=== PATIENT | female | born 1975 | race Caucasian/White ===

== ENCOUNTER 2020-09-16 09:07 | Outpatient (REF) | payer OTHER, SELFPAY ==
--- NOTE | 2020-09-16 09:48 | MR_ITS ---
EXAMINATION: MR BREAST WITHOUT AND WITH CONTRAST, BILATERAL CLINICAL INFORMATION: High-risk screening. The estimated lifetime risk of developing breast cancer is 28%. Mother with history of breast cancer diagnosed age 46. Patient questionnaire indicates previous right breast biopsy. COMPARISON: Portions of a previous study 12/14/2019. Mammography (nondiagnostic monitor review): 04/20/2019. TECHNIQUE: A 1.5 T system and a dedicated breast coil. T1-weighted sequences without fat-saturation were obtained prior to the administration of contrast. Fat-saturated T1 and T2-weighted sequences were also acquired. The patient received 10 mL of IV gadolinium-based contrast, Gadavist. Multiple sequential dynamic T1-weighted sequences were obtained through both breasts with fat-saturation. Subtracted images were reviewed. CAD postprocessing with 3-D reconstructions, maximum intensity projections and kinetic analysis was performed by the interpreting radiologist at an independent workstation and reviewed as a portion of this exam. FINDINGS: Amount of Remaining Fibroglandular Signal: There are scattered areas of fibroglandular tissue (ACR BI-RADS breast composition category B).* Background Parenchymal Enhancement: Moderate Symmetry of Background Enhancement: Symmetric RIGHT BREAST: The 0.4 cm rim-enhancing observation in the 9 o'clock position, 4 cm from the right nipple on the previous study is similar or less conspicuous. There is a small 0.4 cm enhancing focus in the 6 o'clock position, 3 cm from the right nipple (series 100, image 97). This was likely present on 12/14/2019. Masses: There are no other suspicious enhancing masses. Non-mass Enhancement: There is no suspicious non-mass enhancement. Focus: There are a few other nonspecific enhancing foci. Non-enhancing Findings: Associated findings: There are no suspicious associated findings. Kinetic Curve Assessment: Initial Phase: There are no suspicious areas of color signal. Delayed Phase: There are no areas of washout kinetics. There is some color signal associated with the small observation in the 6:00 position. This demonstrates mixed kinetics but no washout. LEFT BREAST: There is a small area of heterogeneous enhancement just above the left nipple (series 101, image 66). Based upon the parasagittal postcontrast images, this is unchanged. Masses: There are no other suspicious enhancing masses. Non-mass Enhancement: There is no suspicious non-mass enhancement. Focus: There are no other suspicious enhancing foci. Non-enhancing Findings: Associated Findings: There are no suspicious associated findings. Kinetic Curve Assessment: Initial Phase: There are no areas of suspicious color signal. Delayed Phase: There are no areas of washout kinetics. There is persistent enhancement in the small observation in the left breast. No washout. The axillary lymph nodes are morphologically normal. No suspicious internal mammary lymph nodes are seen. No suspicious abnormality in the visualized portions of chest or abdomen. MR/MR breast BI wo/w con IMPRESSION: There are some small enhancing observations in each breast. There is no convincing suspicious enhancing mass. There are some small enhancing findings for which repeat MRI in one year is strongly recommended. The most recent available mammogram is 04/20/2019. Strongly recommend annual screening mammography. ASSESSMENT: Right Breast: ACR BI-RADS 2: Benign finding. Left Breast: ACR BI-RADS 2: Benign finding. RECOMMENDATIONS: Continue screening. The patient appears to be due for screening mammography. Recommend annual screening breast MRI.
== END 2020-09-16 09:08 | disposition home or self-care (01) ==
LOC: HO.MRI 09:07
PROVIDERS: PCP Internal Medicine; Visit Provider Surgery
DX: Z91.89 Other specified personal risk factors, not elsewhere classified (principal); Z80.3 Family history of malignant neoplasm of breast
CPT/HCPCS: 77049; A9585

== ENCOUNTER → 2020-11-11 11:47 | Outpatient (BNVA) | payer OTHER, SELFPAY | PROVIDERS: PCP Internal Medicine; Referring Provider Internal Medicine; Visit Provider Surgery | DX: Z76.89 Persons encountering health services in other specified circumstances (principal) ==

== ENCOUNTER 2022-05-11 21:43 | Emergency (ER) | payer OTHER, SELFPAY ==
--- NOTE | ~2022-05-11 | XR_ITS ---
EXAMINATION: XR SHOULDER, RIGHT CLINICAL INFORMATION: Status post fall COMPARISON: None TECHNIQUE: AP external rotation, Grashey, scapular Y, and axillary views of the right shoulder. FINDINGS: The bones and soft tissues are normal. No fracture. Glenohumeral and acromioclavicular alignment is anatomic with normal joint space. No abnormal soft tissue calcifications. XR/XR shoulder RT min 2V IMPRESSION: Normal right shoulder.
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
[2022-05-11 22:22] VITALS: BP 132/64; PULSE 89; RESP 18; TEMP 35.9; O2SAT 98; BMI 31.0
[2022-05-11] MEDS: traMADoL HCL 50 MG TABLET PO (22:47)
[2022-05-11] MEDS: Ibuprofen 600 MG TABLET PO (22:48)
[2022-05-11] MEDS: Cyclobenzaprine HCl 10 MG TABLET PO (22:54)
== END 2022-05-11 23:05 | disposition home or self-care (01) ==
PROVIDERS: Emergency Provider Internal Medicine; PCP Internal Medicine
DX: S46.011A Strain of muscle(s) and tendon(s) of the rotator cuff of right shoulder, initial encounter (principal); S50.311A Abrasion of right elbow, initial encounter; S80.211A Abrasion, right knee, initial encounter; V18.0XXA Pedal cycle driver injured in noncollision transport accident in nontraffic accident, initial encounter; Y93.55 Activity, bike riding; Y92.410 Unspecified street and highway as the place of occurrence of the external cause; Y99.9 Unspecified external cause status
CPT/HCPCS: 73030; 99283; 99284

== ENCOUNTER 2022-05-22 17:30 | Emergency (ER) | payer OTHER, SELFPAY ==
[2022-05-22 17:39] VITALS: BP 170/80; PULSE 65; RESP 18; TEMP 36.6; O2SAT 100; BMI 31.0
[2022-05-22 18:10] LABS: Hematocrit 33.5 % (37.0-47.0); Hemoglobin 10.5 g/dl (12.0-16.0); Mean Corpuscular HGB Conc 31.3 g/dl (31.0-35.0); Mean Corpuscular Hemoglobin 27.3 pg (27.0-33.0); Mean Platelet Volume 9.5 fL (9.4-12.3); Platelet Count 262 X10*3/uL (160-400); Red Blood Count 3.85 X10*6/uL (4.20-5.50); Red Cell Distribution Width 14.5 % (11.0-16.0); White Blood Count 6.9 X10*3/uL (4.8-10.8)
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
[2022-05-22 18:26] LABS: Anion Gap 12 (12-20); Blood Urea Nitrogen 11 mg/dL (9-16); Calcium 9.5 mg/dL (8.4-10.2); Carbon Dioxide 24 mmol/L (22-29); Chloride 108 mmol/L (96-108); Creatinine Clr Calc Pharmacy 93.8; Estimated Glomerular Filt Rate > 60; Glucose Random 153 mg/dL (60-115); Potassium 4.3 mmol/L (3.3-5.1); Sodium 140 mmol/L (135-145)
[2022-05-22] MEDS: predniSONE 20 MG TABLET 60 MG PO (18:54)
[2022-05-22 18:55] VITALS: BP 123/65; PULSE 58; RESP 14; TEMP 36.9; O2SAT 100
[2022-05-22] MEDS: Famotidine 20 MG TABLET PO (18:55)
[2022-05-22] MEDS: Ondansetron ODT 4 MG TAB.RAPDIS TRANSLINGU (18:55)
== END 2022-05-22 19:26 | disposition home or self-care (01) ==
PROVIDERS: Emergency Provider Emergency Medicine; PCP Internal Medicine
DX: L50.9 Urticaria, unspecified (principal); T40.425A Adverse effect of tramadol, initial encounter; Y92.9 Unspecified place or not applicable
CPT/HCPCS: 36415; 80048; 85027; 99282; 99283

== ENCOUNTER 2022-11-18 21:35 | Inpatient (IN) | payer OTHER, SELFPAY ==
--- NOTE | ~2022-11-18 | CT_ITS ---
EXAMINATION: CT ABDOMEN AND PELVIS WITH CONTRAST CLINICAL INFORMATION: Upper abdominal pain. Pancreatitis/SBO COMPARISON: None TECHNIQUE: Multidetector volumetric images were obtained from the superior aspect of the liver through the pubic symphysis following administration 85 mL of Omnipaque 350 intravenous contrast. Sagittal and coronal reformatted images were obtained on the technologist's workstation. Oral contrast: No This CT examination was performed using dose optimization techniques as appropriate, variously including the following: *Automated exposure control *Adjustment of mA and/or kV according to patient size (this includes techniques or standardized protocols for targeted exams where dose is matched to indication/reason for exam; i.e. extremities or head) *Use of iterative reconstruction technique DLP: 841 mGy-cm FINDINGS: LUNG BASES: The visualized lung bases are unremarkable. Pericardial effusion. LIVER, GALLBLADDER, AND BILIARY TREE: The liver is normal in size, shape, and attenuation. No focal hepatic lesion or biliary ductal dilatation is present. The gallbladder is unremarkable with no evidence of radiopaque gallstones, gallbladder wall thickening, or obvious pericholecystic inflammatory changes. PANCREAS: Unremarkable. SPLEEN: Unremarkable. ADRENAL GLANDS: Unremarkable. KIDNEYS AND URETERS: The kidneys are normal in size, shape, and attenuation. No hydronephrosis, hydroureter, or calculi seen. No perinephric stranding. BLADDER: Unremarkable. GASTROINTESTINAL TRACT: Dilated loops of distal small bowel extending into the lower pelvis are noted with a probable transition point seen at a enteric anastomosis (3:70). Large bowel is decompressed. There is fluid in the pelvis and interloop fluid is noted as well (3:58). Additional anastomoses appear patent. ABDOMINAL WALL: No significant hernia is appreciated. LYMPH NODES: Normal. VASCULAR: Unremarkable. PELVIC VISCERA: Unremarkable. OSSEOUS STRUCTURES: Unremarkable. CT/CT abdomen pelvis w IV con IMPRESSION: Dilated loops of distal small bowel extending into the lower pelvis with a probable transition point seen at a enteric anastomosis. There is fluid in the pelvis and interloop fluid is noted as well. These findings are concerning for small bowel obstruction.
--- NOTE | ~2022-11-18 | XR_ITS ---
EXAMINATION: XR CHEST CLINICAL INFORMATION: NG tube placement COMPARISON: None TECHNIQUE: Frontal view of the chest was obtained. FINDINGS: Enteric tube extends below the hemidiaphragm with the tip out of field of view. Lungs are clear, no effusion or pneumothorax. Cardiomediastinal silhouette is within normal limits. XR/XR chest 1V IMPRESSION: Enteric tube extends below the hemidiaphragm with the tip out of field of view.
--- NOTE | ~2022-11-18 | XR_ITS ---
EXAMINATION: XR ABDOMEN KUB CLINICAL INDICATION: Recent small bowel obstruction. Follow-up small bowel series. COMPARISON: Small bowel series ON 923, CT abdomen and pelvis 11/18/2022. TECHNIQUE: AP x2 views of the abdomen. FINDINGS: Most of the oral contrast has moved into the colon. There is some scant contrast distal small bowel which is of normal caliber. There is no gaseous dilatation of bowel. No obstruction. XR/XR KUB IMPRESSION: 1. Most of the oral contrast is moved into the colon. 2. No gaseous dilatation of bowel. No obstruction.
--- NOTE | ~2022-11-18 | FL_ITS ---
EXAMINATION: FL SMALL BOWEL SERIES CLINICAL INFORMATION: SBO. COMPARISON: CT abdomen pelvis 11/18/2022 TECHNIQUE: Following a floriculturist image of the abdomen, contrast was administered orally, and interval abdominal radiographs were performed to assess for contrast progression through the small bowel. Following contrast transit through the small bowel and into the colon, the patient was placed on the fluoroscopy table, and multiple spot images were obtained. FINDINGS: Air Sealing Technician image of the abdomen demonstrates minimal stool in the right colon otherwise normal bowel gas pattern. There is normal transit time of contrast material through the small bowel, with contrast present in the colon less than 1 hour 40 minutes. Small bowel loops are of normal caliber throughout the abdomen and pelvis. The jejunal and ileal fold patterns are normal, without evidence of abnormal thickening. No fixed regions of luminal narrowing are seen to suggest stricturing. The terminal ileum demonstrates a normal appearance. Patient is status post partial colectomy with ileocolic anastomosis in the right upper/mid quadrant. FLUOROSCOPY TIME: 1.5 minutes DOSE AREA PRODUCT: 11.557 uGy-m2 (microgray-meter squared) FL/FL small bowel follow through IMPRESSION: Normal small bowel series. Patient has known colectomy with ileocolic anastomosis in the right mid quadrant. Recommend a follow-up KUB at 8:00 AM tomorrow.
[2022-11-18 21:41] VITALS: BP 159/91; PULSE 73; RESP 18; TEMP 36.6; O2SAT 99; BMI 32.5
[2022-11-18 21:51] VITALS: BP 145/93; PULSE 90; RESP 20; TEMP 36.6; O2SAT 99
--- NOTE | 2022-11-18 21:53 | ECG_ITS ---
Test Reason : EPIGASTRIC PAIN Blood Pressure : / mmHG Vent. Rate : 059 BPM Atrial Rate : 059 BPM P-R Int : 170 ms QRS Dur : 090 ms QT Int : 432 ms P-R-T Axes : 050 060 058 degrees QTc Int : 427 ms Sinus bradycardia Otherwise normal ECG When compared with ECG of 04-APR-2013 10:41, No significant change was found Referred By: Chalo Shirley Electronically Signed By:VIVIANA RAYMOND
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
[2022-11-18 22:16] VITALS: RESP 14
[2022-11-18] MEDS: Morphine Sulfate 4 MG/ML CARTRIDGE IVPUSH (22:16)
[2022-11-18] MEDS: ondansetron HCL 4 MG/2 ML VIAL IVPUSH (22:16)
[2022-11-18 22:17] LABS: MANUAL DIFF FLAG NO
[2022-11-18] MEDS: 0.9 % Sodium Chloride 1,000 ML 999 ML IV (22:17)
[2022-11-18 22:18] LABS: Basophils Percent Auto 0.3 % (0-2); Eosinophils Percent Auto 0.2 % (0-4); Hematocrit 38.4 % (37.0-47.0); Hemoglobin 12.7 g/dl (12.0-16.0); Imm Gran Abs Auto 0.03 X10*3/uL (0.00-0.03); Imm Gran Pct Auto 0.3 % (0.0-0.4); Lymphocytes Absolute Auto 1.5 X10*3/uL (1.2-4.9); Lymphocytes Percent Auto 13.1 % (20-40); Mean Corpuscular HGB Conc 33.1 g/dl (31.0-35.0); Mean Corpuscular Hemoglobin 28.1 pg (27.0-33.0); Mean Platelet Volume 9.3 fL (9.4-12.3); Monocytes Absolute Auto 0.7 X10*3/uL (0.1-1.2); Monocytes Percent Auto 5.6 % (2-11); Neutrophils Absolute Auto 9.3 x10*3/uL (2.0-8.3); Neutrophils Percent Auto 80.5 % (45-73); Platelet Count 329 X10*3/uL (160-400); Red Blood Count 4.52 X10*6/uL (4.20-5.50); Red Cell Distribution Width 12.7 % (11.0-16.0); White Blood Count 11.6 X10*3/uL (4.8-10.8)
[2022-11-18 22:32] LABS: Lactic Acid 1.7 mmol/L (0.5-2.0)
[2022-11-18 22:37] LABS: Alanine Aminotransferase 39 U/L (0-31); Albumin Level 4.6 g/dL (3.5-5.0); Alkaline Phosphatase 104 U/L (39-117); Anion Gap 17 (12-20); Aspartate Amino Transferase 31 U/L (5-31); Bilirubin Total 0.6 mg/dL (0.0-1.0); Blood Urea Nitrogen 9 mg/dL (9-16); Calcium 10.4 mg/dL (8.4-10.2); Carbon Dioxide 18 mmol/L (22-29); Chloride 109 mmol/L (96-108); Creatinine Clr Calc Pharmacy 105.4; Estimated Glomerular Filt Rate > 60; Glucose Random 143 mg/dL (60-115); Lipase 9 U/L (8-78); Potassium 3.9 mmol/L (3.3-5.1); Sodium 140 mmol/L (135-145); Total Protein 7.7 g/dL (6.5-8.0)
[2022-11-18] MEDS: iohexoL 350 MG/ML 100 ML INFUS..BTL IV (22:49)
[2022-11-18] MEDS: Lidocaine HCl 4 % MPF w/MADgic 5 ML AMPUL 1 APPL TOPICAL (23:29)
[2022-11-19 00:03] LABS: COVID-19 Test Negative (Negative); IDNOW Serial# 16C4AD1C
[2022-11-19] MEDS: Dextrose 5 % and Lactated Ring 1,000 ML 125 ML IVCONT ×3 (00:03→18:36)
[2022-11-19] MEDS: Acetaminophen 1,000 MG/100 ML PIGGYBACK 400 MG IV ×4 (00:03→17:54)
[2022-11-19 00:54] VITALS: RESP 16
[2022-11-19] MEDS: Morphine Sulfate 4 MG/ML CARTRIDGE IVPUSH ×4 (00:54→22:44)
[2022-11-19] MEDS: 0.9 % Sodium Chloride Flush 3 ML SYRINGE IVFLUSH (00:56)
[2022-11-19] MEDS: Enoxaparin Sodium 40 MG/0.4 ML SYRINGE SUBCUT ×2 (00:56→22:43)
[2022-11-19 02:53] VITALS: BP 122/66; PULSE 74; RESP 16; O2SAT 99
[2022-11-19 06:49] LABS: MANUAL DIFF FLAG NO
[2022-11-19 06:55] LABS: Basophils Percent Auto 0.4 % (0-2); Eosinophils Percent Auto 0.3 % (0-4); Hematocrit 32.9 % (37.0-47.0); Hemoglobin 10.7 g/dl (12.0-16.0); Imm Gran Abs Auto 0.03 X10*3/uL (0.00-0.03); Imm Gran Pct Auto 0.3 % (0.0-0.4); Lymphocytes Absolute Auto 1.9 X10*3/uL (1.2-4.9); Lymphocytes Percent Auto 19.1 % (20-40); Mean Corpuscular HGB Conc 32.5 g/dl (31.0-35.0); Mean Corpuscular Hemoglobin 28.5 pg (27.0-33.0); Mean Corpuscular Volume 87.5 fL (80.0-98.0); Mean Platelet Volume 9.9 fL (9.4-12.3); Monocytes Absolute Auto 0.8 X10*3/uL (0.1-1.2); Monocytes Percent Auto 8.1 % (2-11); Neutrophils Absolute Auto 7.1 x10*3/uL (2.0-8.3); Neutrophils Percent Auto 71.8 % (45-73); Platelet Count 272 X10*3/uL (160-400); Red Blood Count 3.76 X10*6/uL (4.20-5.50); Red Cell Distribution Width 12.9 % (11.0-16.0); White Blood Count 9.9 X10*3/uL (4.8-10.8)
[2022-11-19 07:39] LABS: Anion Gap 10 (12-20); Blood Urea Nitrogen 8 mg/dL (9-16); Carbon Dioxide 22 mmol/L (22-29); Chloride 113 mmol/L (96-108); Creatinine Clr Calc Pharmacy 102.9; Estimated Glomerular Filt Rate > 60; Glucose Random 110 mg/dL (60-115); Potassium 4.2 mmol/L (3.3-5.1); Sodium 141 mmol/L (135-145)
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
[2022-11-19 07:47] VITALS: BP 136/76; PULSE 65; RESP 15; TEMP 36.6; O2SAT 99
[2022-11-19 07:47] LABS: Calcium 9.2 mg/dL (8.4-10.2)
--- NOTE | 2022-11-19 08:05 | PHA.MEDREC ---
Pharmacy Consult ? Medication Reconciliation Pharmacy has completed the medication reconciliation.
--- NOTE | 2022-11-19 08:14 | PC.NURSE ---
Patient awake and alert. skin pwd, resp even and non labored. speaking in full, clear sentences. vss. patient c/o 05/23 pain to abdomen, throat, jaw, and nare. medicated w/ prn morphine as ordered. Patient seen by Dr. Gama who mentioned ordering a throat spray. NG tube patent and set to intermittent suction- 300cc of brown gastric contents noted in basin at this time.
--- NOTE | 2022-11-19 08:53 | P.CDIC_ITS ---
CDI Concurrent Query Documentation Clarification: PHYSICIAN'S DOCUMENTATION REQUEST Date of Query: 11/19/22 0854 Patient Name: Karuna Sosa Admit Date: 11/18/22 Dear Doctor, A review of the medical record indicates additional documentation may be needed. Please review below and update the documentation accordingly. Risk Factors/Clinical Indicators/Treatments Per MD progress note 11/19/22: CT findings consistent with small-bowel obstruction due to adhesions from prior surgery. Based on the above, could you clarify in the Progress Notes the appropriate diagnosis, if significant, that supports the above abnormalities and additional evaluation, monitoring, and/or treatment rendered: * SBO, partial * SBO, complete * Other (please specify) * Unable to determine Use of terms such as suspected, likely, concern for, or probable (associated with a specific diagnosis that is being evaluated, monitored, or treated as if it exists) are acceptable and can be coded in the inpatient setting, when documented at the time of discharge. Thank you, Caitie Romano RN Extension: [phone] Please use your independent medical judgment in providing your response. THIS QUERY IS PART OF THE PERMANENT MEDICAL RECORD Provider Response: Other Other Diagnosis: Partial small bowel obstruction
--- NOTE | 2022-11-19 09:09 | PC.NURSE ---
ivf hung per order float nurse
[2022-11-19] MEDS: Throat Spray, Medicated 177 ML BOTTLE 1 SPRAY MUCOUS MEM (09:42)
--- NOTE | 2022-11-19 11:26 | MHC.CM.PN ---
CM met with Patient and her at bedside. Patient lives in a house with her and she required no services nor DME RETAIL WIRELESS ASSOCIATE. Home/self care is the goal and CM has initiated and will follow for dc planning. Patient has received no Covid vax and her PCP is Dr. Shafer.
[2022-11-19 11:38] VITALS: BP 171/82; PULSE 59; RESP 20; TEMP 36.6; O2SAT 100
[2022-11-19 15:47] VITALS: BP 159/80; PULSE 66; RESP 18; TEMP 37.1; O2SAT 97
[2022-11-19 19:33] VITALS: BP 156/80; PULSE 65; RESP 18; TEMP 37.1; O2SAT 99
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
[2022-11-19] MEDS: Ketorolac Tromethamine 30 MG/ML VIAL IVPUSH (22:56)
[2022-11-20] MEDS: Morphine Sulfate 4 MG/ML CARTRIDGE IVPUSH ×2 (03:11→09:40)
[2022-11-20] MEDS: Dextrose 5 % and Lactated Ring 1,000 ML 125 ML IVCONT ×3 (03:13→23:13)
[2022-11-20 03:40] VITALS: BP 109/66; PULSE 61; RESP 14; TEMP 36.6; O2SAT 95
[2022-11-20 06:25] LABS: Hemoglobin 10.1 g/dl (12.0-16.0); Mean Corpuscular HGB Conc 31.6 g/dl (31.0-35.0); Mean Corpuscular Hemoglobin 28.3 pg (27.0-33.0); Mean Corpuscular Volume 89.6 fL (80.0-98.0); Mean Platelet Volume 9.3 fL (9.4-12.3); Platelet Count 228 X10*3/uL (160-400); Red Blood Count 3.57 X10*6/uL (4.20-5.50); Red Cell Distribution Width 12.9 % (11.0-16.0); White Blood Count 5.8 X10*3/uL (4.8-10.8)
[2022-11-20 06:32] LABS: Anion Gap 8 (12-20); Blood Urea Nitrogen 6 mg/dL (9-16); Calcium 8.9 mg/dL (8.4-10.2); Carbon Dioxide 26 mmol/L (22-29); Chloride 113 mmol/L (96-108); Creatinine Clr Calc Pharmacy 118.4; Estimated Glomerular Filt Rate > 60; Glucose Random 107 mg/dL (60-115); Sodium 143 mmol/L (135-145)
[2022-11-20 08:00] VITALS: BP 149/76; PULSE 77; RESP 18; TEMP 36.9; O2SAT 94
--- NOTE | 2022-11-20 09:55 | PM.PNGS ---
Subjective Subjective Date of Service: 11/20/22 Interval history: feels much better abdominal pain much improved says she passed flatus this AM Physical Exam Vital Signs: Vital Signs: Last Vital Signs Temp 98.5 F 11/20/22 08:00 Pulse 77 11/20/22 08:00 Resp 18 11/20/22 08:00 BP 149/76 H 11/20/22 08:00 Pulse Ox 94 11/20/22 08:00 O2 Del Method 11/20/22 08:00 BMI result Body Mass Index 32.5 Const: General: comfortable and no acute distress Resp: Effort & Inspection: normal respiratory effort Cardio: Rate: regular rate GI: Palpation (GI): Soft to palpation, not firm, nontender and no guarding Objective Data Active Medications Amlodipine Besylate (Amlodipine Besylate 5 Mg Tablet) 5 mg PO DAILY [facility]; Protocol Last Admin: 11/20/22 09:40 Dose: Not Given Documented By: MINNA Non-Admin Reason: Patient Refused Enoxaparin Sodium (Enoxaparin Sodium 40 Mg/0.4 Ml Syringe) 40 mg SUBCUT Q24H [facility] Last Admin: 11/19/22 22:43 Dose: 40 mg Documented By: JUANITO Dextrose/Lactated Ringer's (D5lr) 1,000 mls @ 125 mls/hr IVCONT .Q8H [facility] Last Admin: 11/20/22 09:39 Dose: Not Given Documented By: MINNA Non-Admin Reason: IV Running Ketorolac Tromethamine (Ketorolac Tromethamine 30 Mg/Ml Vial) 30 mg IVPUSH Q6H PRN PRN Reason: Pain, Moderate (Pain Scale 4-6 Last Admin: 11/19/22 22:56 Dose: 30 mg Documented By: JUANITO Levothyroxine Sodium (Levothyroxine Sodium 75 Mcg Tablet) 75 mcg PO DAILY@0600 [facility] Last Admin: 11/20/22 06:16 Dose: Not Given Documented By: JUANITO Non-Admin Reason: Patient Refused Morphine Sulfate (Morphine Sulfate 4 Mg/Ml Cartridge) 4 mg IVPUSH Q4H PRN; Protocol PRN Reason: Pain, Severe (Pain Scale 7-10) Last Admin: 11/20/22 09:40 Dose: 4 mg Documented By: HO.SOLISPE Multi-Ingred Medicated Throat [place] (Throat [place], Medicated 177 Ml Bottle) 1 spray MUCOUS MEM Q2H PRN PRN Reason: Sore Throat Last Admin: 11/19/22 09:42 Dose: 1 spray Documented By: ESSIE Ondansetron HCl (Ondansetron Hcl 4 Mg/2 Ml Vial) 4 mg IVPUSH QID PRN PRN Reason: Nausea Pharmacy Consult (Consult Rx Perform Med Rec) 1 each MISCELLANE ONCE PRN PRN Reason: Consult order Sodium Chloride (0.9 % Sodium Chloride Flush 3 Ml Syringe) 3 ml IVFLUSH QSHIFT [facility] Last Admin: 11/20/22 09:39 Dose: Not Given Documented By: MINNA Non-Admin Reason: IV Running Zolpidem Tartrate (Zolpidem Tartrate 5 Mg Tablet) 5 mg PO BEDTIME PRN PRN Reason: Insomnia Labs 11/20/22 05:57 11/20/22 05:57 Labs: Laboratory Results - last 24 hr 11/20/22 11/20/22 05:57 05:57 MCV 89.6 MCH 28.3 MCHC 31.6 RDW 12.9 Plt Count 228 MPV 9.3 L Absolute Nucleated RBC 0.000 Nucleated RBC % (auto) 0.0 Anion Gap 8 L Estim Creat Clear Calc 118.4 Estimated GFR > 60 Random Glucose 107 Calcium 8.9 Procedures Date of Service Date of Service: 11/20/22 Progress Note: A&P Assessment and plan (1) Small bowel obstruction: Status: Acute Assessment and Plan: improving abd soft and benign subjectively pt feels much improved will see how much NGT output is, possibly dc later encouraged ambulation labs ok Time Spent With Patient Time: Total time managing care of this patient today ____ minutes. Quality Stroke Does the patient have a stroke diagnosis?: No VTE Prior VTE?: No VTE Risk Level:: Surgical - moderate VTE Device Contraindication: N/A - Device Ordered VTE Drug Contraindication: N/A - Med Ordered
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
[2022-11-20 11:16] VITALS: BP 138/71; PULSE 71; RESP 18; TEMP 37.2; O2SAT 98
[2022-11-20] MEDS: Ketorolac Tromethamine 30 MG/ML VIAL IVPUSH ×2 (11:16→20:51)
[2022-11-20 15:31] VITALS: BP 144/71; PULSE 66; RESP 17; TEMP 36.4; O2SAT 100
[2022-11-20 19:11] VITALS: BP 156/73; PULSE 78; RESP 17; TEMP 36.9; O2SAT 98
[2022-11-20] MEDS: Enoxaparin Sodium 40 MG/0.4 ML SYRINGE SUBCUT (23:13)
[2022-11-21] MEDS: Ketorolac Tromethamine 30 MG/ML VIAL IVPUSH ×2 (05:46→12:17)
[2022-11-21 07:14] VITALS: BP 118/58; PULSE 68; RESP 17; TEMP 36.6; O2SAT 97
--- NOTE | 2022-11-21 09:57 | P.PNGS_ITS ---
Subjective Subjective Date of Service: 11/21/22 Interval history: says her abd feels better has passed flatus a few times c/o pain on throaat and nose from NGT as per nurse - NGT output was 1600 overnight - pt does take ice chips Physical Exam Vital Signs: Vital Signs: Last Vital Signs Temp 97.8 F 11/21/22 07:14 Pulse 68 11/21/22 07:14 Resp 17 11/21/22 07:14 BP 118/58 L 11/21/22 07:14 Pulse Ox 97 11/21/22 07:14 O2 Del Method 11/21/22 07:14 BMI result Body Mass Index 32.5 Const: Other: looks better General: comfortable and no acute distress Resp: Effort & Inspection: normal respiratory effort Cardio: Rate: regular rate GI: Inspection: No distended Palpation (GI): Soft to palpation, not firm, nontender and no guarding Objective Data Active Medications Amlodipine Besylate (Amlodipine Besylate 5 Mg Tablet) 5 mg PO DAILY [facility]; Protocol Last Admin: 11/20/22 09:40 Dose: Not Given Documented By: MINNA Non-Admin Reason: Patient Refused Enoxaparin Sodium (Enoxaparin Sodium 40 Mg/0.4 Ml Syringe) 40 mg SUBCUT Q24H [facility] Last Admin: 11/20/22 23:13 Dose: 40 mg Documented By: JUANITO Ketorolac Tromethamine (Ketorolac Tromethamine 30 Mg/Ml Vial) 30 mg IVPUSH Q6H PRN PRN Reason: Pain, Moderate, headache Last Admin: 11/21/22 05:46 Dose: 30 mg Documented By: JUANITO Levothyroxine Sodium (Levothyroxine Sodium 75 Mcg Tablet) 75 mcg PO DAILY@0600 [facility] Last Admin: 11/21/22 05:51 Dose: Not Given Documented By: JUANITO Non-Admin Reason: Patient Refused Morphine Sulfate (Morphine Sulfate 4 Mg/Ml Cartridge) 4 mg IVPUSH Q4H PRN; Protocol PRN Reason: Pain, Severe (Pain Scale 7-10) Last Admin: 11/20/22 09:40 Dose: 4 mg Documented By: MINNA Multi-Ingred Medicated Throat [place] (Throat [place], Medicated 177 Ml Bottle) 1 spray MUCOUS MEM Q2H PRN PRN Reason: Sore Throat Last Admin: 11/19/22 09:42 Dose: 1 spray Documented By: ESSIE Ondansetron HCl (Ondansetron Hcl 4 Mg/2 Ml Vial) 4 mg IVPUSH QID PRN PRN Reason: Nausea Pharmacy Consult (Consult Rx Perform Med Rec) 1 each MISCELLANE ONCE PRN PRN Reason: Consult order Sodium Chloride (0.9 % Sodium Chloride Flush 3 Ml Syringe) 3 ml IVFLUSH QSHIFT [facility] Last Admin: 11/21/22 07:42 Dose: Not Given Documented By: MINNA Non-Admin Reason: IV Running Zolpidem Tartrate (Zolpidem Tartrate 5 Mg Tablet) 5 mg PO BEDTIME PRN PRN Reason: Insomnia Labs 11/20/22 05:57 11/20/22 05:57 Procedures Date of Service Date of Service: 11/21/22 Progress Note: A&P Assessment and plan (1) Small bowel obstruction: Status: Acute Assessment and Plan: likely from postop adhesions passing flatus looks well abd soft, not distended, not tender as per nurse - high NGT output, although clear, likely from ice chips? clamp NGT, reevaluate later and likely dc exam benign seems much improved labs ok Time Spent With Patient Time: Total time managing care of this patient today ____ minutes. Quality Stroke Does the patient have a stroke diagnosis?: No VTE Prior VTE?: No VTE Risk Level:: Surgical - moderate VTE Device Contraindication: N/A - Device Ordered VTE Drug Contraindication: N/A - Med Ordered
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
--- NOTE | 2022-11-21 13:17 | PM.EVENT ---
Event Note Date of Service: 11/21/22 Event Note: continues to feel well denies abdl pain NGT clamped - checked now for residuals - no output abd remains soft, not tender, not distended pt appears well will dc NGT keep on sips of clears for now Time Spent With Patient Time: Total time managing care of this patient today ____ minutes.
[2022-11-21] MEDS: Lactated Ringers 1,000 ML 80 ML IVCONT (14:52)
[2022-11-21 16:00] VITALS: BP 143/79; PULSE 68; RESP 17; TEMP 36.6; O2SAT 100
--- NOTE | 2022-11-21 16:41 | PC.NURSE ---
at approx 1330, pt wished to not have IV fluids administered. RN and patient agreed to check in later.
[2022-11-21 19:11] VITALS: BP 148/72; PULSE 68; RESP 16; TEMP 37; O2SAT 99
--- NOTE | 2022-11-21 20:04 | PC.NURSE ---
Report given to Inez BRUNO on S3. Pt being transferred at this time.
[2022-11-21 20:13] VITALS: BP 158/82; PULSE 68; RESP 18; TEMP 36.8; O2SAT 100
[2022-11-21 21:03] VITALS: BP 143/70; PULSE 64
[2022-11-21] MEDS: Enoxaparin Sodium 40 MG/0.4 ML SYRINGE SUBCUT (23:38)
[2022-11-22] MEDS: Ketorolac Tromethamine 30 MG/ML VIAL IVPUSH (01:47)
[2022-11-22 03:28] VITALS: BP 120/57; PULSE 66; RESP 18; TEMP 37; O2SAT 95
[2022-11-22] MEDS: Levothyroxine Sodium 75 MCG TABLET PO (04:43)
[2022-11-22] MEDS: Lactated Ringers 1,000 ML 80 ML IVCONT ×2 (04:43→19:58)
[2022-11-22 08:00] VITALS: BP 117/70; PULSE 62; RESP 16; TEMP 36.4; O2SAT 98
--- NOTE | 2022-11-22 08:59 | PM.PNGS ---
Subjective Subjective Date of Service: 11/22/22 Interval history: Feels ok this morning. NGT removed yesterday, has been tolerating sips of water. Denies abd pain, nausea or vomiting. Ambulating in room. Passing flatus but no BM. Physical Exam Vital Signs: Vital Signs: Last Vital Signs Temp 97.5 F 11/22/22 08:00 Pulse 62 11/22/22 08:00 Resp 16 11/22/22 08:00 BP 117/70 11/22/22 08:00 Pulse Ox 98 11/22/22 08:00 O2 Del Method 11/22/22 08:00 BMI result Body Mass Index 32.5 Const: General: comfortable, no acute distress and alert Orientation/consciousness: patient oriented x3 Resp: Effort & Inspection: normal respiratory effort GI: Inspection: No distended Palpation (GI): Soft to palpation, Tenderness to palpation present (GI) (mild LLQ), no guarding and not rigid Percussion: Yes normal to percussion Skin: General skin exam: no rashes or lesions noted Neuro: General: patient oriented x3 Extrem: General: Yes no clubbing, cyanosis or edema Objective Data Active Medications Amlodipine Besylate (Amlodipine Besylate 5 Mg Tablet) 5 mg PO DAILY [facility]; Protocol Last Admin: 11/22/22 08:47 Dose: Not Given Documented By: JAMA[place] Non-Admin Reason: Patient Refused Enoxaparin Sodium (Enoxaparin Sodium 40 Mg/0.4 Ml Syringe) 40 mg SUBCUT Q24H [facility] Last Admin: 11/21/22 23:38 Dose: 40 mg Documented By: DULCE Lactated Ringer's (Lr) 1,000 mls @ 80 mls/hr IVCONT .[id number] [facility] Last Admin: 11/22/22 04:43 Dose: 80 mls/hr Documented By: FRANCISCO Ketorolac Tromethamine (Ketorolac Tromethamine 30 Mg/Ml Vial) 30 mg IVPUSH Q6H PRN PRN Reason: Pain, Moderate, headache Last Admin: 11/22/22 01:47 Dose: 30 mg Documented By: DULCE Levothyroxine Sodium (Levothyroxine Sodium 75 Mcg Tablet) 75 mcg PO DAILY@0600 [facility] Last Admin: 11/22/22 04:43 Dose: 75 mcg Documented By: FRANCISCO Morphine Sulfate (Morphine Sulfate 4 Mg/Ml Cartridge) 4 mg IVPUSH Q4H PRN; Protocol PRN Reason: Pain, Severe (Pain Scale 7-10) Last Admin: 11/20/22 09:40 Dose: 4 mg Documented By: MINNA Multi-Ingred Medicated Throat [place] (Throat [place], Medicated 177 Ml Bottle) 1 spray MUCOUS MEM Q2H PRN PRN Reason: Sore Throat Last Admin: 11/19/22 09:42 Dose: 1 spray Documented By: ESSIE Ondansetron HCl (Ondansetron Hcl 4 Mg/2 Ml Vial) 4 mg IVPUSH QID PRN PRN Reason: Nausea Pharmacy Consult (Consult Rx Perform Med Rec) 1 each MISCELLANE ONCE PRN PRN Reason: Consult order Sodium Chloride (0.9 % Sodium Chloride Flush 3 Ml Syringe) 3 ml IVFLUSH QSHIFT [facility] Last Admin: 11/22/22 08:47 Dose: Not Given Documented By: J[place] Non-Admin Reason: IV Running Zolpidem Tartrate (Zolpidem Tartrate 5 Mg Tablet) 5 mg PO BEDTIME PRN PRN Reason: Insomnia Labs 11/20/22 05:57 11/20/22 05:57 Procedures Date of Service Date of Service: 11/22/22 Progress Note: A&P Assessment and plan (1) Small bowel obstruction: Status: Acute Plan 47 year old female admitted with SBO likely secondary to adhesions. NGT removed yesterday and has been tolerating sips of water. Some evidence of GI function. Abd benign- soft, nondistended, mild LLQ tenderness. Will advance to clear liquids and further as tolerated. Home when tolerating solid diet. Patient comfortable with plan. Time Spent With Patient Time: Total time managing care of this patient today ____ minutes. Quality Stroke Does the patient have a stroke diagnosis?: No VTE Prior VTE?: No VTE Risk Level:: Surgical - moderate VTE Device Contraindication: N/A - Device Ordered VTE Drug Contraindication: N/A - Med Ordered
--- NOTE | 2022-11-22 11:11 | PM.EVENT ---
Event Note Date of Service: 11/22/22 Event Note: Blood pressures have remained relatively stable with slight elevation likely related to headache. Continue treating chronic intermittent headaches. Will sign off at this time. Please do not hesitate to reach out for any additional questions. Time Spent With Patient Time: Total time managing care of this patient today ____ minutes.
[2022-11-22 15:45] VITALS: BP 138/77; PULSE 67; RESP 16; TEMP 36.8; O2SAT 99
[2022-11-22] MEDS: 0.9 % Sodium Chloride Flush 3 ML SYRINGE IVFLUSH (16:43)
[2022-11-22 19:40] VITALS: BP 130/64; PULSE 70; RESP 18; TEMP 37.4; O2SAT 100
[2022-11-22] MEDS: Sodium Chloride 0.65 % Nasal 44 ML SPRBTL 1 SPRAY NOSTRIL-B (19:58)
[2022-11-22] MEDS: Enoxaparin Sodium 40 MG/0.4 ML SYRINGE SUBCUT (22:22)
[2022-11-23 04:00] VITALS: BP 136/73; PULSE 63; RESP 17; TEMP 36.5; O2SAT 96
[2022-11-23] MEDS: Levothyroxine Sodium 75 MCG TABLET PO (05:55)
[2022-11-23 07:51] VITALS: BP 139/78; PULSE 58; RESP 20; TEMP 36.7; O2SAT 97
--- NOTE | 2022-11-23 07:59 | P.PNGS_ITS ---
Subjective Subjective Date of Service: 11/23/22 Interval history: Feeling well this morning. Tolerating solid diet.Passing flatus but no BM. Physical Exam Vital Signs: Vital Signs: Last Vital Signs Temp 98.0 F 11/23/22 07:51 Pulse 58 11/23/22 07:51 Resp 20 11/23/22 07:51 BP 139/78 11/23/22 07:51 Pulse Ox 97 11/23/22 07:51 O2 Del Method 11/23/22 07:51 BMI result Body Mass Index 32.5 Const: General: comfortable, no acute distress and alert Orientation/consciousness: patient oriented x3 Resp: Effort & Inspection: normal respiratory effort Cardio: Rate: regular rate GI: Inspection: No distended Palpation (GI): Soft to palpation, nontender, no guarding and not rigid Percussion: Yes normal to percussion Skin: General skin exam: no rashes or lesions noted Neuro: General: patient oriented x3 Objective Data Active Medications Amlodipine Besylate (Amlodipine Besylate 5 Mg Tablet) 5 mg PO DAILY [facility]; Protocol Last Admin: 11/22/22 08:47 Dose: Not Given Documented By: J[place]ICA Non-Admin Reason: Patient Refused Enoxaparin Sodium (Enoxaparin Sodium 40 Mg/0.4 Ml Syringe) 40 mg SUBCUT Q24H [facility] Last Admin: 11/22/22 22:22 Dose: 40 mg Documented By: SONY Ketorolac Tromethamine (Ketorolac Tromethamine 30 Mg/Ml Vial) 30 mg IVPUSH Q6H PRN PRN Reason: Pain, Moderate, headache Last Admin: 11/22/22 01:47 Dose: 30 mg Documented By: DULCE Levothyroxine Sodium (Levothyroxine Sodium 75 Mcg Tablet) 75 mcg PO DAILY@0600 [facility] Last Admin: 11/23/22 05:55 Dose: 75 mcg Documented By: EVER Morphine Sulfate (Morphine Sulfate 4 Mg/Ml Cartridge) 4 mg IVPUSH Q4H PRN; Protocol PRN Reason: Pain, Severe (Pain Scale 7-10) Last Admin: 11/20/22 09:40 Dose: 4 mg Documented By: PATPE Multi-Ingred Medicated Throat [place] (Throat [place], Medicated 177 Ml Bottle) 1 spray MUCOUS MEM Q2H PRN PRN Reason: Sore Throat Last Admin: 11/19/22 09:42 Dose: 1 spray Documented By: ESSIE Ondansetron HCl (Ondansetron Hcl 4 Mg/2 Ml Vial) 4 mg IVPUSH QID PRN PRN Reason: Nausea Pharmacy Consult (Consult Rx Perform Med Rec) 1 each MISCELLANE ONCE PRN PRN Reason: Consult order Sodium Chloride (0.9 % Sodium Chloride Flush 3 Ml Syringe) 3 ml IVFLUSH QSHIFT [facility] Last Admin: 11/23/22 00:33 Dose: Not Given Documented By: EVER Non-Admin Reason: IV Running Sodium Chloride (Sodium Chloride 0.65 % Nasal 44 Ml Sprbtl) 1 spray NOSTRIL-B Q1H PRN PRN Reason: Congestion Last Admin: 11/22/22 19:58 Dose: 1 spray Documented By: SONY Sumatriptan Succinate (Sumatriptan Succinate 50 Mg Tablet) 50 mg PO DAILY [facility] PRN PRN Reason: Headache Zolpidem Tartrate (Zolpidem Tartrate 5 Mg Tablet) 5 mg PO BEDTIME PRN PRN Reason: Insomnia Labs 11/20/22 05:57 11/20/22 05:57 Procedures Date of Service Date of Service: 11/23/22 Progress Note: A&P Assessment and plan (1) Small bowel obstruction: Status: Acute Plan 47 year old female admitted with SBO likely secondary to adhesions. SB series yesterday showed normal transit time and normal small bowel caliber with multiple anastomoses. Doing well on solid diet and remains asymptomatic. Abd remains soft, NTND. F/u AXR this morning, if normal, stable for discharge to home today. Patient comfortable with plan. Will start on bowel regimen. Time Spent With Patient Time: Total time managing care of this patient today ____ minutes. Quality Stroke Does the patient have a stroke diagnosis?: No VTE Prior VTE?: No VTE Risk Level:: Surgical - moderate VTE Device Contraindication: N/A - Device Ordered VTE Drug Contraindication: N/A - Med Ordered
[2022-11-23 08:00] VITALS: BP 138/78; PULSE 58; RESP 20; TEMP 36.7; O2SAT 97
[2022-11-23] MEDS: Docusate Sodium 100 MG CAPSULE PO (08:17)
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
--- NOTE | 2022-11-23 11:18 | MHC.CM.PN ---
PT MEDICALLY CLEARED FOR D/C HOME SELF-CARE W/ FOR TRANSPORT.
== END 2022-11-23 11:15 | disposition home or self-care (01) | DRG 390 ==
LOC: HO.ED 22:13 → HO.EDOVER 23:44 → HO.IMC 11-19 09:28 → HO.S3 11-21 19:30
PROVIDERS: Admitting Provider Surgery; Emergency Provider Internal Medicine; PCP Internal Medicine; Visit Provider Surgery
DX: K56.51 Intestinal adhesions [bands], with partial obstruction (principal); I10 Essential (primary) hypertension; G44.229 Chronic tension-type headache, not intractable; E03.9 Hypothyroidism, unspecified; Z20.822 Contact with and (suspected) exposure to COVID-19; Z88.5 Allergy status to narcotic agent; Z79.890 Hormone replacement therapy
CPT/HCPCS: 36415; 71045; 74018; 74177; 74250; 80048; 80053; 83605; 83690; 85025; 85027; 87635; 93005; 99284; J0131; J1650; J1885; J2270; J2405; Q9967

== ENCOUNTER 2023-05-30 11:23 | Emergency (ER) | payer OTHER, SELFPAY ==
--- NOTE | ~2023-05-30 | US_ITS ---
EXAMINATION: US ABDOMEN COMPLETE CLINICAL INFORMATION: Right-sided abdominal pain. COMPARISON: CT abdomen/pelvis 11/18/2022 TECHNIQUE: Real-time imaging of the abdominal viscera. FINDINGS: PANCREAS: Tail obscured. ABDOMINAL AORTA: The proximal, mid, and distal segments are normal in caliber. INFERIOR VENA CAVA: Visualized portions are normal. LIVER: The liver is normal in size. The liver contour is normal. Parenchymal echogenicity is normal. No focal hepatic lesion. There is no intrahepatic biliary duct dilatation seen. GALLBLADDER: The gallbladder is physiologically distended without evidence of stones, sludge, polyps, wall thickening or pericholecystic fluid. COMMON BILE DUCT: Normal in caliber measuring 0.4 cm in diameter. RIGHT KIDNEY: No hydronephrosis. No renal calculi or focal parenchymal lesions. The kidney measures 9.7 cm in maximum dimension. LEFT KIDNEY: No hydronephrosis. No renal calculi or focal parenchymal lesions. The kidney measures 9.5 cm in maximum dimension. SPLEEN: The spleen measures 9.8 cm in maximum dimension. FREE FLUID: None. US/US abdomen complete IMPRESSION: Unremarkable abdominal ultrasound.
--- NOTE | ~2023-05-30 | XR_ITS ---
EXAMINATION: XR RIBS, RIGHT CLINICAL INFORMATION: Right mid axillary pain COMPARISON: None available. TECHNIQUE: 4 views of the right ribs were obtained. FINDINGS: Lungs are clear. No consolidation, pneumothorax, or pleural effusion. The cardiomediastinal silhouette and pulmonary vasculature are normal. No acute displaced rib fracture is seen. XR/XR ribs RT min 3V w CXR1V IMPRESSION: No radiographic evidence of acute pulmonary process. No acute displaced rib fracture is seen.
[2023-05-30 12:26] LABS: MANUAL DIFF FLAG NO
[2023-05-30 12:30] VITALS: BP 136/91; PULSE 55; RESP 18; TEMP 36.8; O2SAT 100; BMI 30.7
[2023-05-30 12:34] LABS: Basophils Absolute Auto 0.1 X10*3/uL (0.0-0.2); Eosinophils Absolute Auto 0.1 X10*3/uL (0.0-0.4); Eosinophils Percent Auto 1.4 % (0-4); Hematocrit 35.7 % (37.0-47.0); Hemoglobin 11.1 g/dl (12.0-16.0); Imm Gran Abs Auto 0.01 X10*3/uL (0.00-0.03); Imm Gran Pct Auto 0.2 % (0.0-0.4); Lymphocytes Percent Auto 38.6 % (20-40); Mean Corpuscular HGB Conc 31.1 g/dl (31.0-35.0); Mean Corpuscular Hemoglobin 27.2 pg (27.0-33.0); Mean Corpuscular Volume 87.5 fL (80.0-98.0); Mean Platelet Volume 9.5 fL (9.4-12.3); Monocytes Absolute Auto 0.4 X10*3/uL (0.1-1.2); Monocytes Percent Auto 8.1 % (2-11); Neutrophils Absolute Auto 2.6 x10*3/uL (2.0-8.3); Neutrophils Percent Auto 50.7 % (45-73); Platelet Count 264 X10*3/uL (160-400); Red Blood Count 4.08 X10*6/uL (4.20-5.50); Red Cell Distribution Width 13.8 % (11.0-16.0); White Blood Count 5.2 X10*3/uL (4.8-10.8)
[2023-05-30 12:45] LABS: Alanine Aminotransferase 22 U/L (0-31); Albumin Level 4.2 g/dL (3.5-5.0); Alkaline Phosphatase 101 U/L (39-117); Anion Gap 12 (12-20); Aspartate Amino Transferase 22 U/L (5-31); Bilirubin Total 0.7 mg/dL (0.0-1.0); Blood Urea Nitrogen 8 mg/dL (9-16); Calcium 10.1 mg/dL (8.4-10.2); Carbon Dioxide 26 mmol/L (22-29); Chloride 108 mmol/L (96-108); Creatinine Clr Calc Pharmacy 104.6; Estimated Glomerular Filt Rate > 60; Glucose Random 102 mg/dL (60-115); Lipase 13 U/L (8-78); Potassium 4.7 mmol/L (3.3-5.1); Sodium 141 mmol/L (135-145); Total Protein 7.4 g/dL (6.5-8.0)
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
[2023-05-30 14:57] LABS: D Dimer High Sensitivity < 150 NG/ML
[2023-05-30 15:22] LABS: UPreg QC Valid YES; Urine Pregnancy NEGATIVE (NEGATIVE)
[2023-05-30 15:23] LABS: Appearance Urine Clear; Color Urine Yellow; Glucose Urine UA Negative (Negative); Leukocyte Esterase Urine Negative (Negative); Nitrite Urine Negative (Negative); Specific Gravity - Urine 1.015 (1.005-1.025); Urine Blood Negative (Negative); Urine Ketones Trace mg/dL (Negative); Urine Protein Negative (Neg-Trace)
== END 2023-05-30 16:05 | disposition home or self-care (01) ==
PROVIDERS: Registered Nurse Emergency; Emergency Provider Emergency Medicine; PCP Internal Medicine
DX: M94.0 Chondrocostal junction syndrome [Tietze] (principal); R10.11 Right upper quadrant pain; I10 Essential (primary) hypertension
CPT/HCPCS: 36415; 71101; 76700; 80053; 81003; 81025; 83690; 85025; 85379; 99284

== ENCOUNTER 2023-10-27 01:54 | Observation (INO) | payer OTHER, SELFPAY ==
--- NOTE | ~2023-10-27 | CT_ITS ---
EXAMINATION: CT ABDOMEN AND PELVIS WITH CONTRAST CLINICAL INFORMATION: Abdominal pain, bloated. History of small bowel obstruction. Evaluate for the same COMPARISON: 11/18/2022 TECHNIQUE: Multidetector volumetric images were obtained from the superior aspect of the liver through the pubic symphysis following administration 85 mL of Omnipaque 350 intravenous contrast. Sagittal and coronal reformatted images were obtained on the technologist's workstation. Oral contrast: No This CT examination was performed using dose optimization techniques as appropriate, variously including the following: *Automated exposure control *Adjustment of mA and/or kV according to patient size (this includes techniques or standardized protocols for targeted exams where dose is matched to indication/reason for exam; i.e. extremities or head) *Use of iterative reconstruction technique DLP: 797 mGy-cm FINDINGS: LUNG BASES: The visualized lung bases are unremarkable. LIVER, GALLBLADDER, AND BILIARY TREE: The liver is normal in size, shape, and attenuation. No focal hepatic lesion or biliary ductal dilatation is present. The gallbladder is unremarkable with no evidence of radiopaque gallstones, gallbladder wall thickening, or obvious pericholecystic inflammatory changes. PANCREAS: Unremarkable. SPLEEN: Unremarkable. ADRENAL GLANDS: Unremarkable. KIDNEYS AND URETERS: The kidneys are normal in size, shape, and attenuation. No hydronephrosis, hydroureter, or calculi seen. No perinephric stranding. BLADDER: Unremarkable. GASTROINTESTINAL TRACT: Right hemicolectomy with intact ileocolic anastomosis in the right upper quadrant. An additional enteroenteric anastomosis is present in the right hemiabdomen, in the midabdomen and in the pelvis. There is perienteric fat stranding and trace fluid in the mesenteric leaves associated with the enteroenteric anastomosis in the pelvis. No associated obstruction. Stomach unremarkable. ABDOMINAL WALL: No significant hernia is appreciated. LYMPH NODES: Normal. VASCULAR: Unremarkable. PELVIC VISCERA: Uterus and adnexa unremarkable. Small pelvic free fluid, within physiologic normal limits, though the nearby bowel inflammation may be contributing.. OSSEOUS STRUCTURES: Unremarkable. CT/CT abdomen pelvis w IV con IMPRESSION: * No bowel obstruction. * Multiple bowel surgeries redemonstrated, including a right hemicolectomy with intact ileocolic anastomosis in the right upper quadrant. * There is perienteric fat stranding and trace fluid in the mesenteric leaves associated with an enteroenteric anastomosis in the pelvis, likely an enteritis. Consider small bowel bacterial overgrowth in this patient with altered anatomy, and possibly abnormal motility. * Small pelvic free fluid, within physiologic normal limits, though the nearby bowel inflammation may be contributing to the patient's symptoms. Fleischner guidelines were followed.
[2023-10-27 02:00] VITALS: BP 119/68; PULSE 78; RESP 16; TEMP 36.7; O2SAT 100; BMI 31.0
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
--- NOTE | 2023-10-27 02:31 | ECG_ITS ---
Test Reason : CHEST PAIN Blood Pressure : / mmHG Vent. Rate : 060 BPM Atrial Rate : 060 BPM P-R Int : 178 ms QRS Dur : 096 ms QT Int : 416 ms P-R-T Axes : 035 045 058 degrees QTc Int : 416 ms Normal sinus rhythm Normal ECG When compared with ECG of 18-NOV-2022 21:54, No significant change was found Referred By: Sreekanth Moise Electronically Signed By:Rafael Bernstein
[2023-10-27] MEDS: Morphine Sulfate 4 MG/ML CARTRIDGE IVPUSH ×2 (02:49→04:52)
[2023-10-27] MEDS: ondansetron HCL 4 MG/2 ML VIAL IVPUSH (02:49)
[2023-10-27] MEDS: 0.9 % Sodium Chloride 1,000 ML 999 ML IV (02:49)
[2023-10-27 02:50] LABS: Basophils Absolute Auto 0.1 X10*3/uL (0.0-0.2); Basophils Percent Auto 0.8 % (0-2); Eosinophils Absolute Auto 0.2 X10*3/uL (0.0-0.4); Eosinophils Percent Auto 2.8 % (0-4); Hematocrit 36.3 % (37.0-47.0); Imm Gran Abs Auto 0.02 X10*3/uL (0.00-0.03); Imm Gran Pct Auto 0.3 % (0.0-0.4); Lymphocytes Absolute Auto 1.7 X10*3/uL (1.2-4.9); Lymphocytes Percent Auto 22.2 % (20-40); MANUAL DIFF FLAG NO; Mean Corpuscular HGB Conc 33.1 g/dl (31.0-35.0); Mean Corpuscular Volume 84.6 fL (80.0-98.0); Mean Platelet Volume 9.4 fL (9.4-12.3); Monocytes Absolute Auto 0.6 X10*3/uL (0.1-1.2); Monocytes Percent Auto 7.4 % (2-11); Neutrophils Percent Auto 66.5 % (45-73); Platelet Count 247 X10*3/uL (160-400); Red Blood Count 4.29 X10*6/uL (4.20-5.50); Red Cell Distribution Width 13.8 % (11.0-16.0); White Blood Count 7.6 X10*3/uL (4.8-10.8)
[2023-10-27 02:57] LABS: Prothrombin Time 12.6 SEC (11.1-13.3)
[2023-10-27 03:00] LABS: Lactic Acid 1.2 mmol/L (0.5-2.0); Partial Thromboplastin Time 37.5 SEC (26.0-36.4)
[2023-10-27 03:12] LABS: Alanine Aminotransferase 16 U/L (0-31); Alkaline Phosphatase 86 U/L (39-117); Anion Gap 11 (12-20); Aspartate Amino Transferase 18 U/L (5-31); Bilirubin Total 0.5 mg/dL (0.0-1.0); Blood Urea Nitrogen 9 mg/dL (9-16); Calcium 9.9 mg/dL (8.4-10.2); Carbon Dioxide 23 mmol/L (22-29); Chloride 110 mmol/L (96-108); Creatinine Clr Calc Pharmacy 98.3; Estimated Glomerular Filt Rate > 60; Glucose Random 123 mg/dL (60-115); Lipase 14 U/L (8-78); Sodium 140 mmol/L (135-145); Total Protein 7.1 g/dL (6.5-8.0)
[2023-10-27 03:26] LABS: HCG Quantitative 4 mIU/mL; TSH reflex Free T4 4.35 uIU/mL (0.32-4.0)
--- NOTE | 2023-10-27 03:30 | PC.NURSE ---
Addendum entered by Sohan Smith RN 10/27/23 05:04: pt reassessed for pain reported 04/23. Medicated per JAN Original Note: pt reassessed, for pain reported tolerated 05/23 pain
[2023-10-27 04:44] LABS: Appearance Urine Clear; Color Urine Yellow; Glucose Urine UA Negative (Negative); Leukocyte Esterase Urine Trace (Negative); Nitrite Urine Negative (Negative); PH 6.5 (5.0-9.0); Specific Gravity - Urine 1.015 (1.005-1.025); UMIC TRIGGER UACC YES; Urine Blood Negative (Negative); Urine Ketones Trace mg/dL (Negative); Urine Protein Negative (Neg-Trace)
[2023-10-27 04:47] LABS: Bacteria Urine None Seen (None Seen); Hyaline Casts Urine 0-2 /LPF (0-2); RBC Urine 0-2 /HPF (0-2); Squamous Epithelial Cell Urine 0-2 /HPF (0-2); WBC Urine 0-5 /HPF (0-5)
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
[2023-10-27] MEDS: iohexoL 350 MG/ML 100 ML INFUS..BTL 85 ML IV (05:11)
[2023-10-27 05:19] VITALS: BP 148/86; PULSE 66; RESP 17; TEMP 36.9; O2SAT 99
[2023-10-27] MEDS: Diatrizoate Meglumine, Sodium 30 ML SOLUTION PO (05:42)
[2023-10-27 08:46] VITALS: BP 124/78; PULSE 57; RESP 16; TEMP 36.9; O2SAT 99
[2023-10-27] MEDS: Lactated Ringers 1,000 ML 125 ML IVCONT ×2 (09:06→17:02)
--- NOTE | 2023-10-27 09:07 | PC.NURSE ---
this RN resumed care of pt at this time. vss and up to date. pt c/o 03/23 nonradiating abd pain at this time. denies n/v/d/fever/chills at this time. LR hung/administered per provider order. pt able to walk to restroom w/ steady gait/no assistance. no sob/wob noted. respirations even and unlabored. family bedside. call clark placed within reach.
--- NOTE | 2023-10-27 10:03 | PHA.MEDREC ---
Pharmacy Consult ? Medication Reconciliation Pharmacy has completed the medication reconciliation. Spoke to patient and confirmed she's only taking GENERIC levothyroxine 75mcg, no other medication.
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
--- NOTE | 2023-10-27 12:08 | PC.NURSE ---
pt speaking w/ hospitalist at this time. bedside. call clark placed within reach.
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
[2023-10-27] MEDS: Levothyroxine Sodium 75 MCG TABLET PO (13:06)
[2023-10-27] MEDS: Butalb/Acetamin/Caff 50/325/40 TABLET 1 TAB PO (13:06)
[2023-10-27] MEDS: Enoxaparin Sodium 40 MG/0.4 ML SYRINGE SUBCUT (13:06)
[2023-10-27 13:08] VITALS: BP 124/64; PULSE 58; RESP 14; O2SAT 100
--- NOTE | 2023-10-27 13:09 | PC.NURSE ---
vss and up to date at this time. pt remains sinus iheu on the nurse ortho. pt /o 5/10 abd pain at this time. medication administered per provider order. respirations remain even/unlabored. call clark placed within reach.
--- NOTE | 2023-10-27 14:13 | PC.NURSE ---
unable to reassess medication administration at this time d/t pt sleeping. pt resting in no apparent distress. pt remains sinus hieu on the property assessment monitor. respirations remain even and unlabored. call clark placed within reach.
[2023-10-27 16:11] VITALS: BP 114/63; PULSE 51; RESP 14; O2SAT 98
[2023-10-27] MEDS: 0.9 % Sodium Chloride Flush 3 ML SYRINGE IVFLUSH ×2 (16:11→21:33)
--- NOTE | 2023-10-27 17:02 | PC.NURSE ---
2ng bag of LR hung and administered at this time. pt continues to rest in no apparent distress. respirations remain even/unlabored. call clark placed within reach.
--- NOTE | 2023-10-27 20:31 | PC.NURSE ---
admission worksheet completed.
--- NOTE | 2023-10-27 20:47 | PC.NURSE ---
Addendum entered by Emma Houston 10/27/23 21:10: Provider at bedside, pt agreeable to stay and be transported up to room 474. Original Note: Upon transport to floor, Pt states Im feeling better, I haven't has pain meds, I think things are getting better, I'd like to go home . Dr. Santo made aware and will come down to see Pt. Pt made aware.
[2023-10-27] MEDS: HYDROcodone Bit/Acetam 5/325 TABLET 1 TAB PO (21:32)
[2023-10-27 21:33] VITALS: BP 128/75; PULSE 49; RESP 16; TEMP 36.7; O2SAT 99
[2023-10-27 23:16] VITALS: BMI 30.7
[2023-10-28 04:00] VITALS: RESP 15
[2023-10-28] MEDS: Levothyroxine Sodium 75 MCG TABLET PO (05:45)
[2023-10-28 07:19] VITALS: BP 124/58; PULSE 50; RESP 20; TEMP 36.1; O2SAT 98
[2023-10-28 11:12] VITALS: BP 136/79; PULSE 53; RESP 20; TEMP 36.3; O2SAT 99
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
[2023-10-28] MEDS: Acetaminophen 325 MG TABLET 650 MG PO (12:09)
--- NOTE | 2023-10-28 13:00 | MHC.CM.PN ---
Addendum entered by Alyx Jordan 10/28/23 13:01: Pt is medically cleared for D/C home self-care, pts transported her home. Original Note: GAYTAN10/28. Pt lives at home with her , self-care. Pts to transport her home. HCP declined at this time. PCP: Dr. Mounika Shafer
== END 2023-10-28 13:23 | disposition home or self-care (01) ==
LOC: HO.ED 08:18 → HO.EDOVER 12:40 → HO.IMC 19:55
PROVIDERS: Admitting Provider Student in an Organized Health Care Education/Training Program; Emergency Provider Emergency Medicine Emergency Medical Services; PCP Internal Medicine; Visit Provider Hospitalist
DX: R10.9 Unspecified abdominal pain (principal); K52.9 Noninfective gastroenteritis and colitis, unspecified; R10.13 Epigastric pain; E03.9 Hypothyroidism, unspecified; R14.0 Abdominal distension (gaseous); R11.0 Nausea; D72.829 Elevated white blood cell count, unspecified; R07.9 Chest pain, unspecified; I10 Essential (primary) hypertension; Z79.899 Other long term (current) drug therapy
CPT/HCPCS: 36415; 74177; 80053; 81001; 83605; 83690; 84439; 84443; 84702; 85025; 85610; 85730; 86850; 86900; 86901; 93005; 96361; 96372; 96374; 96375; 96376; 99222; 99285; J1650; J2270; J2405; J7120; Q9967

== ENCOUNTER → 2023-10-27 02:31 | Outpatient (BNV) | payer OTHER, SELFPAY | PROVIDERS: Emergency Provider Emergency Medicine Emergency Medical Services; PCP Internal Medicine; Visit Provider Internal Medicine Cardiovascular Disease | DX: R07.9 Chest pain, unspecified (principal) | CPT/HCPCS: 93010 ==

== ENCOUNTER → 2023-10-27 12:40 | Outpatient (BNV) | payer OTHER, SELFPAY | PROVIDERS: Admitting Provider Student in an Organized Health Care Education/Training Program; Emergency Provider Emergency Medicine Emergency Medical Services; PCP Internal Medicine; Visit Provider Internal Medicine Gastroenterology | DX: K52.9 Noninfective gastroenteritis and colitis, unspecified (principal); R10.84 Generalized abdominal pain; R11.0 Nausea | CPT/HCPCS: 99499 ==

== ENCOUNTER → 2023-10-27 12:40 | Outpatient (BNV) | payer OTHER, SELFPAY | PROVIDERS: Admitting Provider Student in an Organized Health Care Education/Training Program; Emergency Provider Emergency Medicine Emergency Medical Services; PCP Internal Medicine; Visit Provider Student in an Organized Health Care Education/Training Program | DX: K52.9 Noninfective gastroenteritis and colitis, unspecified (principal); R10.84 Generalized abdominal pain; R11.0 Nausea | CPT/HCPCS: 99222; 99239 ==

== ENCOUNTER 2024-08-26 02:40 | Inpatient (IN) | payer OTHER, SELFPAY ==
[2024-08-26] VITALS (7 sets, daily range): BP systolic 125–151; BP diastolic 67–86; PULSE 53–72; RESP 14–20; TEMP 36.5–37.1; O2SAT 97–100; BMI 31.5
--- NOTE | 2024-08-26 | ECG_ITS ---
Test Reason : ABD PAIN Blood Pressure : / mmHG Vent. Rate : 064 BPM Atrial Rate : 064 BPM P-R Int : 184 ms QRS Dur : 084 ms QT Int : 416 ms P-R-T Axes : 021 008 031 degrees QTc Int : 429 ms Normal sinus rhythm Minimal voltage criteria for LVH, may be normal variant ( R in aVL ) Borderline ECG When compared with ECG of 27-OCT-2023 02:37, No significant change was found Referred By: Generic ED Physician Electronically Signed By:ECHO HUGHES MD
--- NOTE | ~2024-08-26 | XR_ITS ---
EXAMINATION: XR CHEST CLINICAL INFORMATION: Post nasogastric tube placement. COMPARISON: None available. TECHNIQUE: Portable AP view of the chest was obtained. FINDINGS: The sidehole of a nasogastric tube projects over the distal esophagus, approximately 2 cm above the diaphragm. The study is otherwise essentially unremarkable. No infiltrate, effusion, or pneumothorax is seen. The cardiovascular structures, mediastinum, diaphragm, bones, and soft tissues appear unremarkable. XR/XR chest 1V IMPRESSION: The sidehole of a nasogastric tube projects over the distal esophagus, approximately 2 cm above the diaphragm. Recommend advancing approximately [address] Saavedra was directly informed of the findings by telephone at approximately 8:12 AM on August 26, 2024. Electronically signed by: Jorge Rudd MD 08/26/2024 08:12 AM EDT
--- NOTE | ~2024-08-26 | CT_ITS ---
EXAMINATION: CT ABDOMEN AND PELVIS WITH CONTRAST CLINICAL INFORMATION: Abdominal pain. COMPARISON: October 27, 2023 TECHNIQUE: Multidetector volumetric images were obtained from the superior aspect of the liver through the pubic symphysis following administration 85 mL of Omnipaque 350 intravenous contrast. Sagittal and coronal reformatted images were obtained on the technologist's workstation. Oral contrast: No This CT examination was performed using dose optimization techniques as appropriate, variously including the following: *Automated exposure control *Adjustment of mA and/or kV according to patient size (this includes techniques or standardized protocols for targeted exams where dose is matched to indication/reason for exam; i.e. extremities or head) *Use of iterative reconstruction technique DLP: 778 mGy-cm FINDINGS: LUNG BASES: There is a small pericardial effusion. LIVER, GALLBLADDER, AND BILIARY TREE: The liver is normal in size, shape, and attenuation. No focal hepatic lesion or biliary ductal dilatation is present. The gallbladder is unremarkable with no evidence of radiopaque gallstones, gallbladder wall thickening, or obvious pericholecystic inflammatory changes. PANCREAS: Unremarkable. SPLEEN: Unremarkable. ADRENAL GLANDS: Unremarkable. KIDNEYS AND URETERS: The kidneys are normal in size, shape, and attenuation. No hydronephrosis, hydroureter, or calculi seen. No perinephric stranding. BLADDER: Unremarkable. GASTROINTESTINAL TRACT: There is been a partial right colectomy. There are dilated mid to distal small bowel loops up to 4.1 cm. The orally ingested contrast is within the stomach and more proximal small bowel. ABDOMINAL WALL: No significant hernia is appreciated. LYMPH NODES: Normal. VASCULAR: Unremarkable. PELVIC VISCERA: Pelvic viscera are unremarkable. There is a small amount of free fluid within the pelvis. OSSEOUS STRUCTURES: Unremarkable. CT/CT abdomen pelvis w IV con IMPRESSION: 1. Status post partial right colectomy. 2. There are dilated mid to distal small bowel loops up to 4.1 cm. The orally ingested contrast is within the stomach and more proximal small bowel. Findings suggests early or partial small bowel obstruction. Small amount of free fluid within the pelvis. 3. Small pericardial effusion. Fleischner guidelines were followed. Electronically signed by: Gallo Luo MD 08/26/2024 06:38 AM EDT
[2024-08-26] MEDS: 0.9 % Sodium Chloride 1,000 ML 999 ML IV (03:34)
[2024-08-26] MEDS: Lidocaine 4 % Cream KIT 1 APPL TOPICAL (03:34)
[2024-08-26] MEDS: Morphine Sulfate 4 MG/ML CARTRIDGE IVPUSH ×2 (03:34→06:30)
[2024-08-26] MEDS: ondansetron HCL 4 MG/2 ML VIAL IVPUSH (03:34)
[2024-08-26 03:37] LABS: MANUAL DIFF FLAG NO
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
[2024-08-26 03:39] LABS: Basophils Absolute Auto 0.1 X10*3/uL (0.0-0.2); Basophils Percent Auto 0.5 % (0-2); Eosinophils Absolute Auto 0.1 X10*3/uL (0.0-0.4); Eosinophils Percent Auto 1.4 % (0-4); Hematocrit 35.2 % (37.0-47.0); Hemoglobin 11.5 g/dl (12.0-16.0); Imm Gran Abs Auto 0.03 X10*3/uL (0.00-0.03); Imm Gran Pct Auto 0.3 % (0.0-0.4); Lymphocytes Absolute Auto 1.5 X10*3/uL (1.2-4.9); Mean Corpuscular HGB Conc 32.7 g/dl (31.0-35.0); Mean Corpuscular Hemoglobin 27.9 pg (27.0-33.0); Mean Corpuscular Volume 85.4 fL (80.0-98.0); Mean Platelet Volume 8.9 fL (9.4-12.3); Monocytes Absolute Auto 0.6 X10*3/uL (0.1-1.2); Monocytes Percent Auto 5.7 % (2-11); Neutrophils Absolute Auto 7.3 x10*3/uL (2.0-8.3); Neutrophils Percent Auto 76.1 % (45-73); Platelet Count 268 X10*3/uL (160-400); Red Blood Count 4.12 X10*6/uL (4.20-5.50); Red Cell Distribution Width 13.8 % (11.0-16.0); White Blood Count 9.6 X10*3/uL (4.8-10.8)
[2024-08-26 03:50] LABS: Lactic Acid 1.6 mmol/L (0.5-2.0)
--- NOTE | 2024-08-26 03:50 | PC.NURSE ---
pt from home, a&ox4, respirations even and unlabored. pt reporting onset of abdominal pain, n/v/d since 5pm. pt reports she has had hx of small bowel obstructions and reports she feels this is similar to this episode. on arrival to room, pt is not actively vomiting. 20G placed in left ac, labs obtained, pt medicated per jan.
[2024-08-26 03:54] LABS: Alanine Aminotransferase 20 U/L (0-31); Albumin Level 4.1 g/dL (3.5-5.0); Alkaline Phosphatase 81 U/L (39-117); Anion Gap 12 (12-20); Aspartate Amino Transferase 21 U/L (5-31); Bilirubin Total 0.7 mg/dL (0.0-1.0); Blood Urea Nitrogen 8 mg/dL (9-16); Calcium 9.8 mg/dL (8.4-10.2); Carbon Dioxide 26 mmol/L (22-29); Chloride 107 mmol/L (96-108); Estimated Glomerular Filt Rate > 60; Glucose Random 127 mg/dL (60-115); Lipase 11 U/L (8-78); Potassium 4.4 mmol/L (3.3-5.1); Sodium 141 mmol/L (135-145); Total Protein 6.9 g/dL (6.5-8.0)
[2024-08-26] MEDS: iohexoL 350 MG/ML 100 ML INFUS..BTL 85 ML IV (05:33)
[2024-08-26] MEDS: Diatrizoate Meglumine, Sodium 30 ML SOLUTION PO (05:45)
[2024-08-26] MEDS: Lidocaine HCl 4 % Laryng-O-Jet 4 ML 1 APPL TOPICAL (06:30)
[2024-08-26] MEDS: Midazolam HCl/PF 2 MG/2 ML VIAL IVPUSH (06:48)
--- NOTE | 2024-08-26 06:53 | PC.NURSE ---
at bedside, attempted to place NG tube on pt, pt states take it out i cant do this , unable to place NG tube at this time. pt medicated per jan.
[2024-08-26] MEDS: Lidocaine HCl Viscous 2 % 15 ML SOLUTION MUCOUS MEM (07:04)
--- NOTE | 2024-08-26 07:34 | PC.NURSE ---
NG tube placed by dr. olvera in right nostril. pt tolerated well. tubing placed to wall suction intermittently. light brown gastric output noted in suction canister. chest xray performed to confirm placement. pt otherwise resting in no apparent distress. no sob/wob noted. respirations even/unlabored. pending admission at this time. plan of care ongoing. call clark placed within reach.
[2024-08-26 07:44] LABS: Prothrombin Time Whole Bld POC 16.9 sec (11.1-13.5); ~PT, ~INR - Anti Coag Clinic 1.4 (0.9-1.1)
--- NOTE | 2024-08-26 07:49 | PC.NURSE ---
NG tube advanced slightly by dr. olvera. pt tolerated well. tubing resecured w/ safety pin. pt currently speaking w/ surgeon, dr. tanner at this time. plan of care ongoing.
--- NOTE | 2024-08-26 07:57 | MHC.EDTECH ---
This tech did an EKG on this patient time-07:48 provider aware
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
[2024-08-26] MEDS: Acetaminophen 1,000 MG/100 ML PIGGYBACK 400 MG IV (08:16)
--- NOTE | 2024-08-26 08:21 | PC.NURSE ---
ED provider verbalizing that NG tube needs to be advanced d/t minimal amount of gastric content in suction canister. pt refusing for NG tube to be advanced. ED provider bedside speaking w/ pt and educating the importance of advancing NG tube. pt still refusing at this time.
[2024-08-26] MEDS: Dextrose 5 % and Lactated Ring 1,000 ML 125 ML IVCONT ×2 (08:39→15:00)
[2024-08-26] MEDS: Butalb/Acetamin/Caff 50/325/40 TABLET 1 TAB PO (12:54)
--- NOTE | 2024-08-26 12:54 | PC.NURSE ---
pt verbalizes increase in AVITIA - prn medication utilized. effectiveness pending.
--- NOTE | 2024-08-26 13:20 | PHA.MEDREC ---
Addendum entered by Lianne Lemus riddhi 08/26/24 16:02: Pt states she receives from [facility]. Called [facility], Pt last filled 07/30/24 for brand name Synthroid 75 mg for 90 day supply. Original Note: Pharmacy Consult ? Medication Reconciliation Pharmacy has completed the medication reconciliation. Spoke with patient to confirm medication. She confirmed 75mg. We called [facility], and [facility] to confirm dose, but they have not filled it.
[2024-08-26] MEDS: 0.9 % Sodium Chloride Flush 3 ML SYRINGE IVFLUSH (14:58)
[2024-08-26] MEDS: Ketorolac Tromethamine 15 MG/ML VIAL IVPUSH (14:58)
[2024-08-27] MEDS: Dextrose 5 % and Lactated Ring 1,000 ML 125 ML IVCONT ×2 (00:20→07:58)
[2024-08-27 04:00] VITALS: BP 113/68; PULSE 51; RESP 16; TEMP 36.8; O2SAT 96
[2024-08-27] MEDS: Butalb/Acetamin/Caff 50/325/40 TABLET 1 TAB PO ×2 (06:03→15:58)
--- NOTE | 2024-08-27 06:06 | PC.NURSE ---
Pt slept well all night, no episode of nausea nor vomiting, pt requested for her Synthroid, Dr. Sophia knight notified, MD said will come over to reassess pt later, pt was updated.
[2024-08-27 07:06] LABS: MANUAL DIFF FLAG NO
[2024-08-27 07:21] VITALS: BP 133/79; PULSE 55; RESP 16; TEMP 36.6; O2SAT 97
[2024-08-27 07:29] LABS: Blood Urea Nitrogen 5 mg/dL (9-16); Creatinine Clr Calc Pharmacy 109.5; Estimated Glomerular Filt Rate > 60; Glucose Random 117 mg/dL (60-115)
[2024-08-27 07:32] LABS: Basophils Percent Auto 0.4 % (0-2); Eosinophils Absolute Auto 0.2 X10*3/uL (0.0-0.4); Eosinophils Percent Auto 4.5 % (0-4); Hematocrit 30.5 % (37.0-47.0); Hemoglobin 9.7 g/dl (12.0-16.0); Imm Gran Abs Auto 0.01 X10*3/uL (0.00-0.03); Imm Gran Pct Auto 0.2 % (0.0-0.4); Lymphocytes Absolute Auto 1.8 X10*3/uL (1.2-4.9); Mean Corpuscular HGB Conc 31.8 g/dl (31.0-35.0); Mean Corpuscular Hemoglobin 27.8 pg (27.0-33.0); Mean Corpuscular Volume 87.4 fL (80.0-98.0); Mean Platelet Volume 9.4 fL (9.4-12.3); Monocytes Absolute Auto 0.4 X10*3/uL (0.1-1.2); Monocytes Percent Auto 7.9 % (2-11); Neutrophils Absolute Auto 2.5 x10*3/uL (2.0-8.3); Platelet Count 216 X10*3/uL (160-400); Red Blood Count 3.49 X10*6/uL (4.20-5.50); Red Cell Distribution Width 14.1 % (11.0-16.0); White Blood Count 4.9 X10*3/uL (4.8-10.8)
[2024-08-27 07:46] LABS: Anion Gap 10 (12-20); Calcium 8.7 mg/dL (8.4-10.2); Carbon Dioxide 23 mmol/L (22-29); Chloride 110 mmol/L (96-108); Potassium 3.5 mmol/L (3.3-5.1); Sodium 139 mmol/L (135-145)
--- NOTE | 2024-08-27 09:35 | MHC.CM.PN ---
Pt self-care, lives at home with her and 2 children. Pts will transport her home at discharge. Education provided on HCP, pt declines at this time. PCP: Dr. Mounika Shafer
[2024-08-27] MEDS: Levothyroxine Sodium 75 MCG TABLET PO (12:12)
--- NOTE | 2024-08-27 15:01 | P.PNGS_ITS ---
Subjective Subjective Date of Service: 08/27/24 Interval history: Patient has complete resolution of her abdominal symptoms. She is passing flatus and stool. She would like her diet advanced. Patient wished to be discharged home. Physical Exam 2 Vital Signs: Vital Signs: Last Vital Signs Temp 97.9 F 08/27/24 07:21 Pulse 55 08/27/24 07:21 Resp 16 08/27/24 07:21 BP 133/79 08/27/24 07:21 Pulse Ox 97 08/27/24 07:21 O2 Del Method Room Air 08/27/24 07:21 BMI result Body Mass Index 31.5 GI: Other: Abdomen corpulent, soft, benign, nontender Objective Data Active Medications Acetaminophen/Butalbital/Caffeine (Butalb/Acetamin/Caff 50/325/40 Tablet) 1 tab PO Q4H PRN PRN Reason: Headache Last Admin: 08/27/24 06:03 Dose: 1 tab Documented By: JACIEL Calcium Carbonate (Calcium Carbonate 750 Mg Tab.Chew) 750 mg PO Q4H PRN PRN Reason: Heartburn Dextrose/Lactated Ringer's (D5lr) 1,000 mls @ 125 mls/hr IVCONT .Q8H [facility] Last Admin: 08/27/24 07:58 Dose: 125 mls/hr Documented By: ARGELIA Ketorolac Tromethamine (Ketorolac Tromethamine 15 Mg/Ml Vial) 15 mg IVPUSH Q6H PRN PRN Reason: Pain, Moderate(Pain Scale 4-6) Last Admin: 08/26/24 14:58 Dose: 15 mg Documented By: TIFFANIE Levothyroxine Sodium (Levothyroxine Sodium 75 Mcg Tablet) 75 mcg PO DAILY@0600 [facility] Last Admin: 08/27/24 12:12 Dose: 75 mcg Documented By: ARGELIA Magnesium Hydroxide (Milk Of Magnesia 30 Ml Oral.Susp) 30 ml PO DAILY PRN PRN Reason: Constipation Melatonin (Melatonin 3 Mg Tablet) 6 mg PO BEDTIME PRN PRN Reason: Insomnia Ondansetron HCl (Ondansetron Hcl 4 Mg/2 Ml Vial) 4 mg IVPUSH QID PRN PRN Reason: Nausea Sodium Chloride (0.9 % Sodium Chloride Flush 3 Ml Syringe) 3 ml IVFLUSH QSHIFT [facility] Last Admin: 08/27/24 09:28 Dose: Not Given Documented By: ARGELIA Non-Admin Reason: IV Running Labs 08/27/24 06:51 08/27/24 06:51 Labs: Laboratory Results - last 24 hr 08/27/24 06:51 MCV 87.4 MCH 27.8 MCHC 31.8 RDW 14.1 Plt Count 216 MPV 9.4 Immature Gran % (Auto) 0.2 Neut % (Auto) 51.0 Lymph % (Auto) 36.0 [place] % (Auto) 7.9 Eos % (Auto) 4.5 H Baso % (Auto) 0.4 Lymph # (Auto) 1.8 [place] # (Auto) 0.4 Eos # (Auto) 0.2 Baso # (Auto) 0.0 Abs Immat Gran (auto) 0.01 Absolute Neuts (auto) 2.5 Absolute Nucleated RBC 0.000 Nucleated RBC % (auto) 0.0 Anion Gap 10 L Estim Creat Clear Calc 109.5 Estimated GFR > 60 Random Glucose 117 H Calcium 8.7 D Procedures Date of Service Date of Service: 08/27/24 Progress Note: A&P Assessment and plan (1) Small bowel obstruction: Status: Acute Assessment and Plan: Advance diet, ambulate, plan for discharge later today Time Spent With Patient Time: Total time managing care of this patient today ____ minutes. Quality Stroke Does the patient have a stroke diagnosis?: No VTE Prior VTE?: No VTE Risk Level:: Surgical - low VTE Device Contraindication: N/A - Device Ordered VTE Drug Contraindication: Treatment Not Indicated
[2024-08-27 15:23] VITALS: BP 131/76; PULSE 52; RESP 18; TEMP 37.2; O2SAT 99
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
== END 2024-08-27 19:25 | disposition home or self-care (01) | DRG 390 ==
LOC: HO.ED 07:20 → HO.EDOVER 08:05 → HO.S3 13:10
PROVIDERS: Admitting Provider Surgery; Emergency Provider Internal Medicine; PCP Internal Medicine; Visit Provider Surgery
DX: K56.51 Intestinal adhesions [bands], with partial obstruction (principal); E03.9 Hypothyroidism, unspecified; W34.00XS Accidental discharge from unspecified firearms or gun, sequela; Z79.899 Other long term (current) drug therapy
CPT/HCPCS: 36415; 71045; 74177; 80048; 80053; 83605; 83690; 85025; 85610; 93005; 99285; J0131; J1885; J2250; J2270; J2405; Q9967

== ENCOUNTER → 2024-08-26 07:48 | Outpatient (BNV) | payer OTHER, SELFPAY | PROVIDERS: Admitting Provider Surgery; Emergency Provider Internal Medicine; PCP Internal Medicine; Visit Provider Internal Medicine Cardiovascular Disease | DX: R94.31 Abnormal electrocardiogram [ECG] [EKG] (principal) | CPT/HCPCS: 93010 ==

== ENCOUNTER → 2024-08-26 07:54 | Outpatient (BNV) | payer OTHER, SELFPAY | PROVIDERS: Admitting Provider Surgery; Emergency Provider Internal Medicine; PCP Internal Medicine; Visit Provider Surgery | DX: K56.609 Unspecified intestinal obstruction, unspecified as to partial versus complete obstruction (principal) | CPT/HCPCS: 99222; 99238; 99499 ==

== ENCOUNTER 2025-04-02 08:03 | Inpatient (IN) | payer OTHER, SELFPAY ==
[2025-04-02] VITALS (7 sets, daily range): BP systolic 113–148; BP diastolic 61–76; PULSE 51–74; RESP 16–19; TEMP 36.3–37; O2SAT 98–99; BMI 29.9; BMI 31.5
--- NOTE | ~2025-04-02 | CT_ITS ---
EXAMINATION: CT ABDOMEN AND PELVIS WITH CONTRAST CLINICAL INFORMATION: Abdominal pain and distention. History of small bowel obstruction. COMPARISON: August 26, 2024. TECHNIQUE: Multidetector volumetric images were obtained from the superior aspect of the liver through the pubic symphysis following administration 85 mL of Omnipaque 350 intravenous contrast. Sagittal and coronal reformatted images were obtained on the technologist's workstation. Oral contrast: Yes This CT examination was performed using dose optimization techniques as appropriate, variously including the following: *Automated exposure control *Adjustment of mA and/or kV according to patient size (this includes techniques or standardized protocols for targeted exams where dose is matched to indication/reason for exam; i.e. extremities or head) *Use of iterative reconstruction technique. DLP: 689 mGy centimeter. FINDINGS: LUNG BASES: Linear attenuation left lung base. Atelectasis lung bases. LIVER, GALLBLADDER, AND BILIARY TREE: Liver measures 15 cm. No focal mass. Portal veins, hepatic veins and intrahepatic portion of the IVC are patent. No pericholecystic fluid collection or gallbladder wall thickening. No intrahepatic or extrahepatic biliary ductal dilatation. PANCREAS: No focal lesion. No peripancreatic fluid collection. No main pancreatic ductal dilatation. SPLEEN: 9 cm. No focal lesion. ADRENAL GLANDS: Soft tissue fullness without nodular morphology pattern, bilaterally. KIDNEYS AND URETERS: No gross renal mass. No hydronephrosis. No gross nephrolithiasis. Subcentimeter cyst, left kidney. BLADDER: Fluid-filled nearly collapsed. GASTROINTESTINAL TRACT: Abundant stool throughout the large intestine. Sutures at the distal ileal lobes and transverse colon/hepatic colonic flexure with shortening probably resection of the ascending colon. There is oral contrast in the distended distal ileal loops. The oral contrast is diluted in the distal ileal loops with small caliber with respect to the prominent morphology pattern of the proximal jejunal ileal loops. There is air-fluid levels in the prominent small bowel loops. There is free fluid in the pelvic peritoneal cavity. There is fluid in the mesentery. No peripheral enhancing fluid collection. No pneumoperitoneum. No pneumatosis intestinalis.. ABDOMINAL WALL: No gross umbilical hernia. No gross inguinal hernia. LYMPH NODES: No lymphadenopathy, retroperitoneal or mesenteric. VASCULAR: No aneurysm or dissection, abdominal aorta. Few scattered calcified plaques abdominal aorta wall and iliac arteries. Small volume of pericardial effusion measuring 15 Hounsfield units. PELVIC VISCERA: No gross masses. OSSEOUS STRUCTURES: Spondylosis L4-5 and L1-2 and L2-3 without acute fracture or listhesis. CT/CT abdomen pelvis w IV con IMPRESSION: Partial/intermittent distal small bowel obstruction. Ascites, small to moderate volume. Pericardial effusion, small to moderate volume. Fleischner guidelines were followed. Electronically signed by: Anish Andrea MD 04/02/2025 10:52 AM EDT
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
[2025-04-02 08:36] LABS: MANUAL DIFF FLAG NO
[2025-04-02 08:39] LABS: Appearance Urine Clear; Basophils Percent Auto 0.3 % (0-2); Color Urine Yellow; Eosinophils Absolute Auto 0.2 X10*3/uL (0.0-0.4); Eosinophils Percent Auto 1.4 % (0-4); Glucose Urine UA Negative (Negative); Hematocrit 38.7 % (37.0-47.0); Hemoglobin 12.8 g/dl (12.0-16.0); Imm Gran Abs Auto 0.03 X10*3/uL (0.00-0.03); Imm Gran Pct Auto 0.3 % (0.0-0.4); Leukocyte Esterase Urine Trace (Negative); Lymphocytes Absolute Auto 2.2 X10*3/uL (1.2-4.9); Lymphocytes Percent Auto 18.3 % (20-40); Mean Corpuscular HGB Conc 33.1 g/dl (31.0-35.0); Mean Corpuscular Hemoglobin 28.4 pg (27.0-33.0); Mean Platelet Volume 8.9 fL (9.4-12.3); Monocytes Absolute Auto 0.8 X10*3/uL (0.1-1.2); Monocytes Percent Auto 6.5 % (2-11); Neutrophils Absolute Auto 8.6 x10*3/uL (2.0-8.3); Neutrophils Percent Auto 73.2 % (45-73); Nitrite Urine Negative (Negative); Platelet Count 336 X10*3/uL (160-400); Red Cell Distribution Width 13.6 % (11.0-16.0); UMIC TRIGGER UACC YES; Urine Blood Negative (Negative); Urine Ketones Trace mg/dL (Negative); Urine Protein Negative (Neg-Trace); White Blood Count 11.8 X10*3/uL (4.8-10.8)
[2025-04-02] MEDS: Acetaminophen 1,000 MG/100 ML PIGGYBACK 400 MG IV (08:55)
[2025-04-02] MEDS: ondansetron HCL 4 MG/2 ML VIAL IVPUSH (08:55)
[2025-04-02 08:56] LABS: Bacteria Urine None Seen (None Seen); Hyaline Casts Urine 0-2 /LPF (0-2); RBC Urine 0-2 /HPF (0-2); WBC Urine 0-5 /HPF (0-5)
--- OUTSIDE RECORDS SUMMARY | 2025-04-02 08:59 | XMS_ITS | Clinical Summary ---
Author Organization [facility] Address [address] [place] [address] Care Team Providers Care Boat Outfitting Supervisor Name Role Phone Mounika Shafer MD Primary Care Provider Allergies Active Allergy Reactions Criticality Noted Date Comments Hydromorphone 08/26/2023 Other Reaction(s): vomiting, dizzy Oxycodone-Acetaminophen Other Low 08/11/2023 Other Reaction(s): dizzy, vomiting Medications desonide (DESOWEN) 0.05 % creamIndications :Psoriasis Apply topically 2 (two) times a day if needed for irritation 60 g 11 4 10/30/20 25 Active escitalopram (Lexapro) 5 mg tabletIndication s:Anxiety Take 1 tablet (5 mg total) by mouth 1 (one) time each day 90 tablet 2 4 07/27/20 25 Active levothyroxine (SYNTHROID) 75 mcg tabletIndication s:Hypothyroidism , unspecified type Take 1 tablet (75 mcg total) by mouth 1 (one) time each day before breakfast 90 tablet 3 4 Active Active Problems Problem Noted Date Diagnosed Date Acquired hypothyroidism 08/26/2023 Class 1 obesity 08/26/2023 Low vitamin D level 08/26/2023 Resolved Problems Problem Noted Date Diagnosed Date Resolved Date Female genital symptoms 08/26/202308/14 Family History Medical History Relation Comments No Known Problems Brother No Known Problems Daughter Leukemia Father WBC was high No Known Problems Maternal Grandmother Breast cancer Mother twice No Known Problems Sister 1 No Known Problems Sister 2 No Known Problems Son Relation Status Comments Brother Alive Daughter Alive Father Maternal Grandmother Mother Alive Sister 1 Alive Sister 2 Alive Son Alive Social History Tobacco Use Types Packs/Day Years Used Date Smoking Tobacco: Never Passive Smoke Exposure: Never Smokeless Tobacco: Never Tobacco Cessation:Counseling Given: Not Answered Alcohol Use Standard Drinks/Week Comments Never 0 (1 standard drink = 0.6 oz pur e alcohol) PHQ-2 Answer Date Recorded Depression Risk (PHQ2) Score 4 Comments Unknown Sex and Gender Information Value Date Recorded Sex Assigned at Not on file Legal Sex Female 12:29 AM MST Gender Identity Not on file Sexual Orientation Not on file Last Filed Vital Signs Vital Sign Reading Time Taken Comments Blood Pressure 128/78 10/30/2024 9:57 AM EST Pulse 60 10/30/2024 9:57 AM EST Temperature - - Respiratory Rate 12 10/30/2024 9:57 AM EST Oxygen Saturation - - Inhaled Oxygen Concentration - - Weight 94.4 kg (208 lb 3.2 oz) 10/30/2024 9:57 A M EST Height 175.3 cm (5' 9 ) 10/30/2024 9:57 AM EST Body Mass Index 30.75 10/30/2024 9:57 AM EST Plan of Treatment Health Maintenance Due Date Last Done Comments CT Colonography 1974 Cologuard 1974 FOBT/FIT 1974 Sigmoidoscopy 1974 Cervical Cancer Screening (Pap/HPV) 1995 COVID-19 Vaccine ( - season) 2024 Pneumococcal Vaccine: 50+ Years (1 of 1 - PCV) 2024 Mammogram 04/18/2025 04/18/2023 (Prev iously completed - patient stated) LEATHA-7 Anxiety Screen 04/30/2025 10/30/2024 PHQ-9 Depression Screen 04/30/2025 10/30/2024 DTaP,Tdap,and Td Vaccines (1 - Tdap) 06/14/2025 Postponed from 1993 (Patient Refused) Zoster Vaccines (1 of 2) 06/14/2025 Pos tponed from 2024 (Patient Refused) Influenza Vaccine (Season Ended) 2025 Annual Preventive Exam 10/30/2025 4, 10/30/2024, 08/26/2023, Additional history exists Colonoscopy 03/22/2032 03/22/2022 (Prev iously completed - patient stated) Colorectal Cancer Screening 03/22/2032 RSV Vaccine (SCDM) (1 - 1-dose 75+ series) 2049 Hepatitis C Screening Completed 10/30/2024 Procedures Procedure Name Priority Date/Time Associated Diagnosis Comments HEPATITIS C VIRUS (HCV) ANTIBODY WITH REFLEX TO QUANTITATIVE REAL-TIME PCR Routine 10/30/2024 11:27 AM EST Annual physical exam from Last 3 Months or Most Recently Relevant to Health Maintenance Results * Hepatitis C Virus (HCV) Antibody With Reflex to Quantitative Real-time PCR (10/30/2024 11:27 AM EST) HCV Ab Non Reactive Non Reactive [facility] Blood (Blood, Venous) 10/30/2024 11:27 AM EST 10/31/2024 Comment:Blood, Venous Is the Narrative [facility] - 10/31/2024 10:08 AM EST Performed at: ??01 - [facility] [address] ??[id number] Vocational Placement Specialist: Eugenia Michelle MD, Phone: ??[phone] us Loren Avila NP LAB BLOOD ORDERABLES Final R esult [facility] from Last 3 Months or Most Recently Relevant to Health Maintenance Insurance [employer] Care Teams Boat Outfitting Supervisor Relationship Specialty Start Date End Date Mounika Shafer MD [address] [place] [address] [place] [id number] PCP - General Internal Medicine 10/30/24
[2025-04-02 09:05] LABS: Anion Gap 12 (12-20); Blood Urea Nitrogen 10 mg/dL (9-16); Carbon Dioxide 27 mmol/L (22-29); Chloride 107 mmol/L (96-108); Potassium 4.7 mmol/L (3.3-5.1); Sodium 141 mmol/L (135-145)
[2025-04-02 09:06] LABS: Alanine Aminotransferase 22 U/L (0-31); Albumin Level 4.1 g/dL (3.5-5.0); Aspartate Amino Transferase 24 U/L (5-31); Bilirubin Total 0.7 mg/dL (0.0-1.0); Calcium 10.1 mg/dL (8.4-10.2); Creatinine Clr Calc Pharmacy 96.6; Estimated Glomerular Filt Rate > 60; Glucose Random 103 mg/dL (60-115); Magnesium 2.2 mg/dL (1.6-2.6); Total Protein 7.3 g/dL (6.5-8.0)
[2025-04-02 09:20] LABS: Influenza A PCR NEGATIVE (Negative); Influenza B PCR NEGATIVE (Negative); Resp Syncy Virus RNA Qual PCR NEGATIVE (Negative); SARS COV2 PCR INHOUSE NEGATIVE (Negative)
[2025-04-02] MEDS: Morphine Sulfate 2 MG/ML CARTRIDGE IVPUSH (09:58)
[2025-04-02] MEDS: Diatrizoate Meglumine, Sodium 30 ML SOLUTION PO (10:22)
[2025-04-02] MEDS: iohexoL 350 MG/ML 100 ML INFUS..BTL IV (10:22)
[2025-04-02 11:41] LABS: Alkaline Phosphatase 88 U/L (39-117)
[2025-04-02] MEDS: 0.9 % Sodium Chloride 1,000 ML 999 ML IV (12:06)
--- NOTE | 2025-04-02 12:30 | PHA.MEDREC ---
Addendum entered by Helga Glass RPh 04/02/25 13:18: Med rec was reviewed by [facility]. Original Note: Pharmacy Consult ? Medication Reconciliation Pharmacy has completed the medication reconciliation. Patient confirmed she is only taking Levothyroxine 75mcg and stated she took one this morning. She also confirmed she was taking Penicillin regimen and finished it the end of last week.
[2025-04-02] MEDS: Lactated Ringers 1,000 ML 100 ML IVCONT (13:48)
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
[2025-04-02] MEDS: Morphine Sulfate 4 MG/ML CARTRIDGE IVPUSH (15:12)
[2025-04-02] MEDS: Ketorolac Tromethamine 30 MG/ML VIAL 15 MG IVPUSH (17:03)
[2025-04-02] MEDS: Acetaminophen 325 MG TABLET 650 MG PO (17:03)
[2025-04-02] MEDS: 0.9 % Sodium Chloride Flush 3 ML SYRINGE IVFLUSH (17:04)
[2025-04-02] MEDS: Lactated Ringers 1,000 ML 125 ML IVCONT (20:59)
[2025-04-03] MEDS: Ketorolac Tromethamine 30 MG/ML VIAL 15 MG IVPUSH ×3 (00:16→12:47)
[2025-04-03] MEDS: 0.9 % Sodium Chloride Flush 3 ML SYRINGE IVFLUSH ×2 (00:19→07:11)
[2025-04-03 03:32] VITALS: BP 107/56; PULSE 50; RESP 16; TEMP 36.4; O2SAT 98
[2025-04-03] MEDS: Lactated Ringers 1,000 ML 125 ML IVCONT (05:05)
[2025-04-03 06:54] VITALS: BP 124/55; PULSE 54; RESP 16; TEMP 36.6; O2SAT 99
[2025-04-03 06:59] LABS: Anion Gap 10 (12-20); Blood Urea Nitrogen 7 mg/dL (9-16); Carbon Dioxide 24 mmol/L (22-29); Chloride 111 mmol/L (96-108); Creatinine Clr Calc Pharmacy 120.8; Estimated Glomerular Filt Rate > 60; Glucose Random 88 mg/dL (60-115); Potassium 4.8 mmol/L (3.3-5.1); Sodium 140 mmol/L (135-145)
[2025-04-03 07:07] LABS: Calcium 8.9 mg/dL (8.4-10.2)
--- NOTE | 2025-04-03 07:37 | P.PNGS_ITS ---
Subjective Subjective Date of Service: 04/03/25 <Thai Tran PA-C - Last Filed: 04/03/25 09:20> 04/03/25 <Rubén Mcintyre MD - Last Filed: 04/03/25 09:20> Patient reports: feels better, pain is less and flatus <YULI German Last Filed: 04/03/25 09:20> Interval history: Patient reports she is doing well today. her pain is much less, denies nausea/vomiting, bloating. She states she has been passing a normal amount of flatus for her. She states she would like to work on going home today. <Thai Tran PA-C - Last Filed: 04/03/25 09:20> Physical Exam 2 Vital Signs: Vital Signs: Last Vital Signs Temp 98 F 04/03/25 06:54 Pulse 54 04/03/25 06:54 Resp 16 04/03/25 06:54 BP 124/55 L 04/03/25 06:54 Pulse Ox 99 04/03/25 06:54 O2 Del Method Room Air 04/03/25 06:54 BMI result Body Mass Index 31.5 <Thai Tran PA-C - Last Filed: 04/03/25 09:20> Const: General: comfortable and no acute distress <YULI German Last Filed: 04/03/25 09:20> Orientation/consciousness: patient oriented x3 <Thai Tran PA-C - Last Filed: 04/03/25 09:20> Resp: Effort & Inspection: normal respiratory effort and able to speak in complete sentences <YULI German Last Filed: 04/03/25 09:20> GI: Inspection: No distended <YULI German Last Filed: 04/03/25 09:20> Palpation (GI): Soft to palpation, not firm, Tenderness to palpation present (GI) (Mild periumbilical tenderness), no guarding and not rigid <YULI German Last Filed: 04/03/25 09:20> Neuro: General: patient oriented x3 <YULI German Last Filed: 04/03/25 09:20> Objective Data Active Medications Acetaminophen (Acetaminophen 325 Mg Tablet) 650 mg PO Q6H PRN PRN Reason: Pain, Moderate(Pain Scale 4-6) Last Admin: 04/02/25 17:03 Dose: 650 mg Documented By: AJ Calcium Carbonate (Calcium Carbonate 750 Mg Tab.Chew) 750 mg PO Q4H PRN PRN Reason: Heartburn Lactated Ringer's (Lr) 1,000 mls @ 125 mls/hr IVCONT .Q8H [facility] Last Admin: 04/03/25 05:05 Dose: 125 mls/hr Documented By: CHERELLE Ketorolac Tromethamine (Ketorolac Tromethamine 30 Mg/Ml Vial) 15 mg IVPUSH Q6H [facility] Stop: 04/07/25 17:59 Last Admin: 04/03/25 07:10 Dose: 15 mg Documented By: ANDREW Lorazepam (Lorazepam 0.5 Mg Tablet) 0.5 mg PO BEDTIME PRN PRN Reason: sleep Morphine Sulfate (Morphine Sulfate 4 Mg/Ml Cartridge) 4 mg IVPUSH Q4H PRN; Protocol PRN Reason: Pain, Severe (Pain Scale 7-10) Last Admin: 04/02/25 15:12 Dose: 4 mg Documented By: AJ Ondansetron HCl (Ondansetron Hcl 4 Mg/2 Ml Vial) 4 mg IVPUSH Q8H PRN PRN Reason: Nausea and Vomiting Sodium Chloride (0.9 % Sodium Chloride Flush 3 Ml Syringe) 3 ml IVFLUSH QSHIFT [facility] Last Admin: 04/03/25 07:11 Dose: 3 ml Documented By: ANDREW <Thai Tran PA-C - Last Filed: 04/03/25 09:20> Labs CBC & Chem 7: 04/02/25 08:30 04/03/25 06:26 <Thai Tran PA-C - Last Filed: 04/03/25 09:20> Labs: Laboratory Results - last 24 hr 04/02/25 04/03/25 08:30 06:26 MCV 86.0 MCH 28.4 MCHC 33.1 RDW 13.6 Plt Count 336 D MPV 8.9 L Immature Gran % (Auto) 0.3 Neut % (Auto) 73.2 H Lymph % (Auto) 18.3 L [place] % (Auto) 6.5 Eos % (Auto) 1.4 Baso % (Auto) 0.3 Lymph # (Auto) 2.2 [place] # (Auto) 0.8 Eos # (Auto) 0.2 Baso # (Auto) 0.0 Abs Immat Gran (auto) 0.03 Absolute Neuts (auto) 8.6 H Absolute Nucleated RBC 0.000 Nucleated RBC % (auto) 0.0 Hold Purple Top SEE NOTE Anion Gap 12 10 L Estim Creat Clear Calc 96.6 120.8 Estimated GFR > 60 > 60 Random Glucose 103 88 Calcium 10.1 D 8.9 D Magnesium 2.2 Total Bilirubin 0.7 AST 24 ALT 22 Alkaline Phosphatase 88 Total Protein 7.3 Albumin 4.1 Urine Color Yellow Urine Appearance Clear Urine pH 6.0 Ur Specific [place] 1.020 Urine Protein Negative Urine Glucose (UA) Negative Urine Ketones Trace Urine Blood Negative Urine Nitrite Negative Ur Leukocyte Esterase Trace H Urine RBC 0-2 Urine WBC 0-5 Ur Squamous Epith Cells 3-5 Urine Bacteria None Seen Hyaline Casts 0-2 Influenza Type A (PCR) NEGATIVE Influenza Type B (PCR) NEGATIVE RSV RNA Qual (PCR) NEGATIVE SARS-CoV-2 RNA (RT-PCR) NEGATIVE <Thai Tran PA-C - Last Filed: 04/03/25 09:20> Procedures Date of Service Date of Service: 04/03/25 <Thai Tran PA-C - Last Filed: 04/03/25 09:20> 04/03/25 <Rubén Mcintyre MD - Last Filed: 04/03/25 09:20> Progress Note: A&P Assessment and plan (1) Small bowel obstruction, partial: Status: Acute <Thai Tran PA-C - Last Filed: 04/03/25 09:20> Assessment and Plan: Denies any abdominal pain Passing flatus well Says she feels well and wants to be discharged Abdomen is soft, benign nontender and nondistended Clinically doing well She had tolerated clear liquids this morning She wants to try regular food for lunch and plans to go home this afternoon Seen and examined independently <Rubén Mcintyre MD - Last Filed: 04/03/25 09:20> Assessment and Plan: 75-year-old female admitted for partial SBO. Patient is much improved from yesterday. She is no longer having pain at rest, nausea is improved, she has had no episodes of vomiting. Passing flatus, no BM at this time. Patient expressing desire to discharge today. Will trial clear liquid diet, will reevaluate this afternoon and advance as tolerated recommend ambulation Pain regimen as needed antiemetics as needed <Thai Tran PA-C - Last Filed: 04/03/25 09:20> Time Spent With Patient Time: Total time managing care of this patient today ____ minutes. <Thai Tran PA-C - Last Filed: 04/03/25 09:20> Quality Stroke Does the patient have a stroke diagnosis?: No <Thai Tran PA-C - Last Filed: 04/03/25 09:20> VTE Prior VTE?: No <Thai Tran PA-C - Last Filed: 04/03/25 09:20> VTE Risk Level:: Surgical - moderate <Thai Tran PA-C - Last Filed: 04/03/25 09:20> VTE Device Contraindication: N/A - Device Ordered <Thai Tran PA-C - Last Filed: 04/03/25 09:20> VTE Drug Contraindication: Treatment Not Indicated <YULI German Last Filed: 04/03/25 09:20>
--- NOTE | 2025-04-03 09:23 | MHC.CM.PN ---
Addendum entered by Alyx Colmenares RN 04/03/25 14:25: Medically cleared for dc home self care. Original Note: Patient lives in a home w/ /children. Self care. Denies use of DME or services. PCP Mounika Shafer MD No HCP. CM provided education and offered assistance. Patient declined. DP: Goal is home self care. to transport. CM will continue to follow.
[2025-04-03] MEDS: Magnesium Citrate 300 ML SOLUTION 100 ML PO (11:48)
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
== END 2025-04-03 15:36 | disposition home or self-care (01) | DRG 390 ==
LOC: HO.ED 12:45 → HO.EDOVER 12:58 → HO.S3 19:29
PROVIDERS: Physician Assistant Medical; Admitting Provider Surgery; Emergency Provider Emergency Medicine; PCP Internal Medicine; Visit Provider Surgery
DX: K56.600 Partial intestinal obstruction, unspecified as to cause (principal); E03.9 Hypothyroidism, unspecified; I10 Essential (primary) hypertension; Z20.822 Contact with and (suspected) exposure to COVID-19; Z79.890 Hormone replacement therapy
CPT/HCPCS: 0241U; 36415; 74177; 80048; 80053; 81001; 83735; 85025; 99221; 99285; J0131; J1885; J2270; J2405; J7120; Q9967

== ENCOUNTER → 2025-04-02 08:12 | Outpatient (BNV) | payer OTHER, SELFPAY | PROVIDERS: PCP Internal Medicine; Visit Provider Radiology Diagnostic Radiology | DX: K56.600 Partial intestinal obstruction, unspecified as to cause (principal); R18.8 Other ascites; J90 Pleural effusion, not elsewhere classified | CPT/HCPCS: 74177 ==

== ENCOUNTER → 2025-04-02 12:53 | Outpatient (BNV) | payer OTHER, SELFPAY | PROVIDERS: Admitting Provider Surgery; Emergency Provider Emergency Medicine; PCP Internal Medicine | DX: K56.600 Partial intestinal obstruction, unspecified as to cause (principal) | CPT/HCPCS: 99222; 99499 ==